=== PATIENT | male | born 1940 | race Caucasian/White ===

== ENCOUNTER 2021-07-09 08:06 | Outpatient (CLI) | payer MEDICARE, OTHER ==
[2021-07-09 08:54] LABS: BASOPHILS % (AUTO) 0.4 % (0-1); EOSINOPHILS # (AUTO) 0.1 X10'3 (0-0.9); EOSINOPHILS % (AUTO) 1.3 % (0-6); HEMOGLOBIN 13.3 g/dl (14.0-17.9); LYMPHOCYTES # (AUTO) 0.8 X10'3 (1.1-4.8); MEAN CORPUSCULAR HEMOGLOBIN 30.1 PG (27.0-31.0); MEAN CORPUSCULAR HGB CONC 33.3 g/dL (33.0-36.5); MEAN CORPUSCULAR VOLUME 90.4 FL (78-98); MEAN PLATELET VOLUME 9.6 FL (7.4-10.4); MONOCYTES # (AUTO) 0.8 X10'3 (0-0.9); MONOCYTES % (AUTO) 10.5 % (2-12); NEUTROPHILS # (AUTO) 6.3 X10'3 (1.8-7.7); NEUTROPHILS % (AUTO) 77.8 % (42-75); PLATELET COUNT 227 X10'3 (140-440); RED BLOOD COUNT 4.43 X10'6 (4.70-6.10); RED CELL DISTRIBUTION WIDTH 15.2 % (11.5-14.5); WHITE BLOOD COUNT 8.1 X10'3 (4.5-11.0)
[2021-07-09 08:57] LABS: PARTIAL THROMBOPLASTIN TIME 28 SECONDS (22-32)
[2021-07-09 09:30] LABS: ALANINE AMINOTRANSFERASE 54 U/L (12-78); ALBUMIN 3.6 G/DL (3.4-5.0); ALBUMIN/GLOBULIN RATIO 0.8 (1.1-1.5); ALKALINE PHOSPHATASE 81 IU/L (46-116); ANION GAP 8 (8-16); ASPARTATE AMINO TRANSFERASE 34 U/L (10-37); BILIRUBIN,TOTAL 0.6 MG/DL (0.1-1.0); BLOOD UREA NITROGEN 18 MG/DL (7-18); BUN/CREATININE RATIO 23.1 (5.4-32.0); CALCIUM 8.7 MG/DL (8.5-10.1); CHLORIDE 105 MMOL/L (99-107); CREATININE 0.78 MG/DL (0.60-1.10); GLUCOSE 107 MG/DL (70-104); POTASSIUM 4.3 MMOL/L (3.5-5.1); SODIUM 141 MMOL/L (135-145); TOTAL CARBON DIOXIDE 27.7 MMOL/L (24-32); eGFR > 90 ML/MIN
[2021-07-09] MEDS ORDERED: IODIXANOL 320 MG/ML INFUS..BTL 50ML IV ONE (10:55)
[2021-07-09] MEDS ORDERED: IODIXANOL 320 MG/ML INFUS..BTL 100ML IV ONE (10:55)
== END 2021-07-09 23:59 | disposition home or self-care (01) ==
LOC: RAD 08:06
PROVIDERS: ATTEND Internal Medicine Cardiovascular Disease
DX: N40.0 Benign prostatic hyperplasia without lower urinary tract symptoms (principal); I25.10 Atherosclerotic heart disease of native coronary artery without angina pectoris; J94.8 Other specified pleural conditions; I65.23 Occlusion and stenosis of bilateral carotid arteries; I08.1 Rheumatic disorders of both mitral and tricuspid valves; Z20.822 Contact with and (suspected) exposure to COVID-19
CPT/HCPCS: 36415; 71046; 71275; 74174; 80053; 85025; 85610; 85730; 87635; 93306; 93880; 94010; 94727; 94729; C9803; Q9967

== ENCOUNTER 2021-07-10 13:28 | Outpatient (CLI) | payer MEDICARE, OTHER ==
[~2021-07-10] VITALS: Ht 154.9 cm; Wt 58.2 kg
--- NOTE | 2021-07-10 14:54 | NUR ---
Patient was in clinic today with Dr. Alexis and Dr. Velásquez. walk test performed. KCCQ12 performed. Patient and family had opportunity to discuss options and ask question.
== END 2021-07-10 23:59 | disposition home or self-care (01) ==
LOC: TAVR 13:28 → EDUNIT# 17:00 → TAVR 23:59
PROVIDERS: ATTEND Internal Medicine Cardiovascular Disease
DX: I35.0 Nonrheumatic aortic (valve) stenosis (principal); R06.02 Shortness of breath; I65.29 Occlusion and stenosis of unspecified carotid artery
CPT/HCPCS: 93005

== ENCOUNTER 2021-09-17 08:30 | Inpatient (IN) | payer MEDICARE, OTHER ==
[2021-09-15 14:02] LABS: ABG BASE EXCESS 1.6 mmol/L (-2.0-2.0); ABG OXYGEN SATURATION 96.9 % (94-97); ABG PCO2 (T) 40.5 mmHg (35.0-48.0); ABG PO2 (T) 86.9 mmHg (75.0-100.0); ALLEN'S TEST POSITIVE; FCOHb 0.4 % (0.0-3.9); FMetHb 0.2 % (0.0-1.5); FO2Hb 96.3 % (94-97); TOTAL HEMOGLOBIN 13.4 G/dl (14.0-18.0)
[2021-09-15 14:21] LABS: BASOPHILS % (AUTO) 0.6 % (0-1); EOSINOPHILS # (AUTO) 0.1 X10'3 (0-0.9); EOSINOPHILS % (AUTO) 1.1 % (0-6); LYMPHOCYTES # (AUTO) 0.9 X10'3 (1.1-4.8); LYMPHOCYTES % (AUTO) 11.7 % (21-51); MEAN CORPUSCULAR HEMOGLOBIN 30.2 PG (27.0-31.0); MEAN CORPUSCULAR HGB CONC 33.3 g/dL (33.0-36.5); MEAN CORPUSCULAR VOLUME 90.7 FL (78-98); MONOCYTES % (AUTO) 12.4 % (2-12); NEUTROPHILS # (AUTO) 5.9 X10'3 (1.8-7.7); NEUTROPHILS % (AUTO) 74.2 % (42-75); PRE OP HEMATOCRIT 38.7 % (42.0-52.0); PRE OP HEMOGLOBIN 12.9 g/dL (14.0-17.9); PRE OP PLATELET COUNT 212 X10'3 (140-440); RED BLOOD COUNT 4.27 X10'6 (4.70-6.10); RED CELL DISTRIBUTION WIDTH 14.8 % (11.5-14.5)
[2021-09-15 14:21] LABS: CLARITY,URINE SLIGHTLY CLOUDY (Clear); COLOR,URINE YELLOW (Yellow); GLUCOSE, URINE NEGATIVE (Neg); KETONES,URINE TRACE mg/dl (Neg); LEUKOCYTE ESTERASE ,URINE SMALL (Neg); NITRITES, URINE POSITIVE (Neg); OCCULT BLOOD,URINE TRACE-INTACT (Neg); PROTEIN,URINE NEGATIVE (Neg); UROBILINOGEN,URINE 0.2 E.U/dL (0.2-1.0)
[2021-09-15 14:25] LABS: UA COLLECTION TYPE CLN CATCH MIDSTREAM
[2021-09-15 14:30] LABS: BACTERIA,URINE 3+ /HPF (Neg); MUCUS STRANDS MODERATE /LPF (Neg); RBC,URINE 0-2 /HPF (0-2); SQUAMOUS EPITHELIAL CELL,UR FEW /LPF (FEW); WBC,URINE 30-50 /HPF (0-4)
[2021-09-15 14:34] LABS: PRE OP INR 1.1 INR; PRE OP PROTIME 11.4 SECONDS (9.0-12.0)
[2021-09-15 15:27] LABS: ALBUMIN 3.5 G/DL (3.4-5.0); ALKALINE PHOSPHATASE 75 IU/L (46-116); BLOOD UREA NITROGEN 21 MG/DL (7-18); BUN/CREATININE RATIO 38.2 (5.4-32.0); CALCIUM 8.5 MG/DL (8.5-10.1); CHLORIDE 107 MMOL/L (99-107); CREATININE 0.55 MG/DL (0.60-1.10); PRE OP ALT 52 U/L (30-65); PRE OP ANION GAP 6 (8-16); PRE OP AST 30 U/L (10-37); PRE OP BILIRUB, TOTAL 0.4 MG/DL (0.0-1.0); PRE OP GLUCOSE 95 MG/DL (70-104); PRE OP POTASSIUM 4.5 MMOL/L (3.4-5.1); PRE OP SODIUM 144 MMOL/L (135-145); TOTAL CARBON DIOXIDE 31.3 MMOL/L (24-32); TOTAL PROTEIN 6.9 G/DL (6.4-8.2); eGFR > 90 ML/MIN
[~2021-09-17] VITALS: Ht 152.4 cm; Wt 59.6 kg
[~2021-09-17 08:30] MED LIST: ASCO-283 PO; ASPI81TA52 PO; ATOR40TA PO; Insulin Reg/NS 100units/100mL 100 ML IV SCH; LOSA50TA3 PO; MALTODEXTRIN/FRUCTOSE 0.68 KCAL/ML LIQUID 296ML BOTTLE PO ONE; MV-M1TAB37 PO; OMEG-79 PO; PROSTATE FORMULA PO; dextrose 50%-water 50ml dispensing syringe IV PRN; famotidine 20mg tablet PO ONE; gabapentin 400mg capsule PO ONE; insulin glargine (Lantus) pen - multi-dose SQ PRN; iohexol 300mg/ml 100ml inj. ONE; metoprolol tartrate 12.5mg (1/2 tablet) PO ONE; ringers solution, lacted 1,000 ML IV SCH
[2021-09-19 13:37] LABS: CLARITY,URINE SLIGHTLY CLOUDY (Clear); COLOR,URINE YELLOW (Yellow); GLUCOSE, URINE NEGATIVE (Neg); KETONES,URINE NEGATIVE (Neg); LEUKOCYTE ESTERASE ,URINE LARGE (Neg); NITRITES, URINE NEGATIVE (Neg); OCCULT BLOOD,URINE TRACE-INTACT (Neg); PROTEIN,URINE NEGATIVE (Neg); UROBILINOGEN,URINE 0.2 E.U/dL (0.2-1.0)
[2021-09-19 13:43] LABS: UA COLLECTION TYPE VOIDED
[2021-09-19 13:48] LABS: WBC,URINE 20-30 /HPF (0-4)
[2021-09-19 13:52] LABS: BACTERIA,URINE 1+ /HPF (Neg); MUCUS STRANDS FEW /LPF (Neg); RBC,URINE 0-2 /HPF (0-2); SQUAMOUS EPITHELIAL CELL,UR NONE SEEN /LPF (FEW); WBC CLUMPS,URINE FEW /HPF (NEGATIVE)
[2021-09-22] MEDS ORDERED: famotidine 20mg tablet PO ONE (05:30)
[2021-09-22] MEDS ORDERED: gabapentin 400mg capsule PO ONE (05:30)
[2021-09-22] MEDS ORDERED: ringers solution, lacted 1,000 ML IV SCH (05:30)
[2021-09-22] MEDS ORDERED: Insulin Reg/NS 100units/100mL 100 ML IV SCH ×2 (05:30)
[2021-09-22] MEDS ORDERED: metoprolol tartrate 12.5mg (1/2 tablet) PO ONE (05:30)
[2021-09-22] MEDS ORDERED: LORazepam 2 mg/ml vial IV ONE (05:30)
[2021-09-22 11:34] LABS: CLARITY,URINE CLEAR (Clear); COLOR,URINE YELLOW (Yellow); GLUCOSE, URINE NEGATIVE (Neg); KETONES,URINE NEGATIVE (Neg); LEUKOCYTE ESTERASE ,URINE LARGE (Neg); NITRITES, URINE NEGATIVE (Neg); OCCULT BLOOD,URINE NEGATIVE (Neg); PROTEIN,URINE NEGATIVE (Neg); UROBILINOGEN,URINE 0.2 E.U/dL (0.2-1.0)
[2021-09-22 11:54] LABS: UA COLLECTION TYPE CLN CATCH MIDSTREAM
[2021-09-22 11:55] LABS: BACTERIA,URINE 1+ /HPF (Neg); RBC,URINE NONE SEEN /HPF (0-2); SQUAMOUS EPITHELIAL CELL,UR FEW /LPF (FEW)
[2021-09-22 11:56] LABS: WBC CLUMPS,URINE FEW /HPF (NEGATIVE)
[2021-09-24 14:06] LABS: CLARITY,URINE CLEAR (Clear); COLOR,URINE YELLOW (Yellow); GLUCOSE, URINE NEGATIVE (Neg); KETONES,URINE NEGATIVE (Neg); LEUKOCYTE ESTERASE ,URINE TRACE (Neg); NITRITES, URINE NEGATIVE (Neg); OCCULT BLOOD,URINE NEGATIVE (Neg); PROTEIN,URINE NEGATIVE (Neg); UROBILINOGEN,URINE 0.2 E.U/dL (0.2-1.0)
[2021-09-24 14:11] LABS: UA COLLECTION TYPE CLN CATCH MIDSTREAM
[2021-09-24 14:12] LABS: BACTERIA,URINE FEW /HPF (Neg); RBC,URINE 0-2 /HPF (0-2); SQUAMOUS EPITHELIAL CELL,UR FEW /LPF (FEW); WBC,URINE 0-4 /HPF (0-4)
[2021-09-25] MEDS ORDERED: ringers solution, lacted 1,000 ML IV SCH (05:00)
[2021-09-25] MEDS ORDERED: gabapentin 300mg capsule PO ONE (05:30)
[2021-09-25] MEDS ORDERED: famotidine 20mg tablet PO ONE (05:30)
[2021-09-25] MEDS ORDERED: MALTODEXTRIN/FRUCTOSE 0.68 KCAL/ML LIQUID 296ML BOTTLE PO ONE (06:00)
[2021-09-25] MEDS ORDERED: metoprolol tartrate 12.5mg (1/2 tablet) PO ONE (06:00)
[2021-09-26] MEDS ORDERED: Insulin Reg/NS 100units/100mL 100 ML IV SCH (11:30)
[2021-09-29] VITALS (18 sets, daily range): BP systolic 88–154; BP diastolic 28–84
[2021-09-29] MEDS ORDERED: ringers solution, lacted 1,000 ML IV SCH (05:00)
[2021-09-29] MEDS ORDERED: ceFAZolin 1000mg inj ONE ×2 (05:29→12:18)
[2021-09-29] MEDS: Insulin Reg/NS 100units/100mL 100 ML IV SCH (05:30)
[2021-09-29] MEDS ORDERED: MALTODEXTRIN/FRUCTOSE 0.68 KCAL/ML LIQUID 296ML BOTTLE PO ONE (05:30)
[2021-09-29] MEDS ORDERED: famotidine 20mg tablet PO ONE (05:30)
[2021-09-29] MEDS ORDERED: metoprolol tartrate 12.5mg (1/2 tablet) PO ONE (05:30)
[2021-09-29] MEDS ORDERED: gabapentin 300mg capsule PO ONE (05:30)
[2021-09-29 06:17] LABS: CLARITY,URINE SLIGHTLY CLOUDY (Clear); COLOR,URINE YELLOW (Yellow); GLUCOSE, URINE NEGATIVE (Neg); KETONES,URINE TRACE mg/dl (Neg); LEUKOCYTE ESTERASE ,URINE TRACE (Neg); NITRITES, URINE NEGATIVE (Neg); OCCULT BLOOD,URINE NEGATIVE (Neg); PH,URINE 5.5 (4.8-8.0); PROTEIN,URINE NEGATIVE (Neg); UROBILINOGEN,URINE 0.2 E.U/dL (0.2-1.0)
[2021-09-29] MEDS ORDERED: LORazepam 2 mg/ml vial IV ONE (06:19)
[2021-09-29 06:30] LABS: UA COLLECTION TYPE VOIDED
[2021-09-29 06:32] LABS: URIC ACID CRYSTALS 3+ /HPF (NEGATIVE)
[2021-09-29 06:33] LABS: BACTERIA,URINE NONE SEEN /HPF (Neg); MUCUS STRANDS NONE SEEN /LPF (Neg); RBC,URINE NONE SEEN /HPF (0-2); SQUAMOUS EPITHELIAL CELL,UR FEW /LPF (FEW); WBC,URINE 0-4 /HPF (0-4)
[2021-09-29] MEDS ORDERED: cefazolin/dext.iso 2gm/50ml 50 ML IV ONE (06:57)
[2021-09-29] MEDS ORDERED: VANCOMYCIN 1GM/200ML IVPB 200 ML IV ONE (06:57)
[2021-09-29] MEDS ORDERED: SUFENTANIL CITRATE 50 MCG/ML 2ml ampule IV ONE (07:00)
[2021-09-29] MEDS ORDERED: midazolam 1 mg/ML 2ml injection ONE (07:01)
[2021-09-29] MEDS ORDERED: DOPamine/D5W 400mg/250ml bag IV ONE (07:40)
[2021-09-29] MEDS ORDERED: NORepinephrine 8 MG in NS 250 ML BAG (32 mcg/ml) IV ONE (07:40)
[2021-09-29] MEDS ORDERED: nitroGLYCERIN in D5W 50mg/250ml (Tridil) infusion IV ONE (07:40)
[2021-09-29] MEDS ORDERED: isoflurane 100ml inhalation liquid IH ONE (07:40)
[2021-09-29] MEDS ORDERED: NORepinephrine 1 mg/ml inj IV ONE ×2 (08:00→10:00)
[2021-09-29] MEDS ORDERED: albumin (human) 25% 100 ML IV solution IV ONE ×2 (08:00→10:00)
[2021-09-29] MEDS ORDERED: sodium bicarbonate (8.4%) 1 mEq/ml syringe ONE ×2 (08:00→10:00)
[2021-09-29] MEDS ORDERED: methylPREDNISolone sod succ 1000mg vial ONE ×2 (08:00→10:00)
[2021-09-29] MEDS ORDERED: potassium Cl 2 mEq/ml inj IV ONE ×2 (08:00→10:00)
[2021-09-29] MEDS ORDERED: heparin 10,000 units/1 ML INJ ONE (08:00)
[2021-09-29] MEDS ORDERED: aminocaproic acid 250 MG/1 ML inj. ONE ×2 (08:00→10:00)
[2021-09-29] MEDS ORDERED: LIDOcaine 2% (20 mg/ml) 5ml cardiac syringe ONE ×2 (08:00→10:00)
[2021-09-29] MEDS ORDERED: calcium chloride 100 MG/1 ML inj IV ONE ×3 (08:00→19:00)
[2021-09-29] MEDS ORDERED: MAGNESIUM SULFATE 4 MEQ/ML (5gm/10ml) injection ONE ×2 (08:00→10:00)
[2021-09-29] MEDS ORDERED: heparin 1,000 units/ml 10ml inj ONE ×2 (08:00→10:00)
[2021-09-29 08:26] LABS: ABG BASE EXCESS -2.2 mmol/L (-2.0-2.0); ABG HCO3 21.4 mmol/L (22.0-26.0); ABG OXYGEN SATURATION 99.7 % (94-97); ABG PCO2 32.8 mmHg (35.0-48.0); CL (ABG) 106 mmol/L (98-110); FCOHb 0.1 % (0.0-3.9); FO2Hb 99.6 % (94-97); GLUCOSE (ABG) 89 mg/dl (70-105); IONIZED CA (ABG) 1.15 mmol/L (1.10-1.43); K (ABG) 3.6 mmol/L (3.5-5.0); TOTAL HEMOGLOBIN 11.7 G/dl (14.0-18.0)
[2021-09-29 09:18] LABS: ABG HCO3 26.2 mmol/L (22.0-26.0); ABG OXYGEN SATURATION 82.5 % (94-97); ABG PCO2 44.5 mmHg (35.0-48.0); CL (ABG) 106 mmol/L (98-110); FCOHb 0.4 % (0.0-3.9); FMetHb 0.1 % (0.0-1.5); FO2Hb 82.1 % (94-97); GLUCOSE (ABG) 90 mg/dl (70-105); IONIZED CA (ABG) 1.14 mmol/L (1.10-1.43); K (ABG) 3.8 mmol/L (3.5-5.0); TOTAL HEMOGLOBIN 11.1 G/dl (14.0-18.0)
[2021-09-29] MEDS ORDERED: ipratropium/albuterol 3ml nebule IH PRN (09:40)
[2021-09-29 09:50] LABS: ABG BASE EXCESS 0.5 mmol/L (-2.0-2.0); ABG HCO3 24.1 mmol/L (22.0-26.0); ABG OXYGEN SATURATION 99.6 % (94-97); ABG PCO2 34.5 mmHg (35.0-48.0); ABG PO2 453.4 mmHg (75.0-100.0); CL (ABG) 103 mmol/L (98-110); FCOHb 0.3 % (0.0-3.9); FMetHb 0.3 % (0.0-1.5); GLUCOSE (ABG) 107 mg/dl (70-105); IONIZED CA (ABG) 1.01 mmol/L (1.10-1.43); K (ABG) 4.3 mmol/L (3.5-5.0); TOTAL HEMOGLOBIN 9.2 G/dl (14.0-18.0)
[2021-09-29] MEDS ORDERED: phenylephrine 10mg/ml inj. ONE ×2 (10:00→12:18)
[2021-09-29 10:19] LABS: ABG BASE EXCESS -1.8 mmol/L (-2.0-2.0); ABG HCO3 23.9 mmol/L (22.0-26.0); ABG OXYGEN SATURATION 99.6 % (94-97); ABG PCO2 44.5 mmHg (35.0-48.0); ABG PO2 350.4 mmHg (75.0-100.0); CL (ABG) 105 mmol/L (98-110); FCOHb 0.1 % (0.0-3.9); FMetHb 0.1 % (0.0-1.5); FO2Hb 99.4 % (94-97); GLUCOSE (ABG) 116 mg/dl (70-105); IONIZED CA (ABG) 1.11 mmol/L (1.10-1.43); K (ABG) 4.4 mmol/L (3.5-5.0); TOTAL HEMOGLOBIN 9.2 G/dl (14.0-18.0)
[2021-09-29 10:56] LABS: ABG BASE EXCESS -3.5 mmol/L (-2.0-2.0); ABG HCO3 23.6 mmol/L (22.0-26.0); ABG OXYGEN SATURATION 99.5 % (94-97); CL (ABG) 106 mmol/L (98-110); FMetHb 0.1 % (0.0-1.5); FO2Hb 99.4 % (94-97); GLUCOSE (ABG) 146 mg/dl (70-105); IONIZED CA (ABG) 1.13 mmol/L (1.10-1.43); K (ABG) 4.4 mmol/L (3.5-5.0)
[2021-09-29 11:33] LABS: ABG BASE EXCESS -1.9 mmol/L (-2.0-2.0); ABG HCO3 25.3 mmol/L (22.0-26.0); ABG OXYGEN SATURATION 99.4 % (94-97); ABG PCO2 55.8 mmHg (35.0-48.0); ABG PO2 266.9 mmHg (75.0-100.0); CL (ABG) 107 mmol/L (98-110); FMetHb 0.3 % (0.0-1.5); FO2Hb 99.1 % (94-97); GLUCOSE (ABG) 193 mg/dl (70-105); IONIZED CA (ABG) 1.07 mmol/L (1.10-1.43); K (ABG) 4.3 mmol/L (3.5-5.0); TOTAL HEMOGLOBIN 9.5 G/dl (14.0-18.0)
[2021-09-29 12:04] LABS: ABG BASE EXCESS -1.3 mmol/L (-2.0-2.0); ABG HCO3 24.9 mmol/L (22.0-26.0); ABG OXYGEN SATURATION 99.4 % (94-97); ABG PCO2 48.8 mmHg (35.0-48.0); ABG PO2 266.3 mmHg (75.0-100.0); CL (ABG) 107 mmol/L (98-110); FCOHb 0.1 % (0.0-3.9); FMetHb 0.3 % (0.0-1.5); GLUCOSE (ABG) 215 mg/dl (70-105); IONIZED CA (ABG) 1.09 mmol/L (1.10-1.43); K (ABG) 4.2 mmol/L (3.5-5.0); TOTAL HEMOGLOBIN 9.7 G/dl (14.0-18.0)
[2021-09-29] MEDS ORDERED: acetaminophen 1,000mg/100ml IV 100 ML IV ONE (12:18)
[2021-09-29] MEDS ORDERED: epiNEPHrine 1 mg/ml inj ONE (12:18)
[2021-09-29] MEDS ORDERED: rocuronium 10mg/ml inj IV ONE (12:18)
[2021-09-29] MEDS ORDERED: etomidate 2mg/ml inj. ONE (12:18)
[2021-09-29] MEDS ORDERED: LIDOcaine 2% (20mg/ml) 5ml vial ONE (12:18)
[2021-09-29] MEDS ORDERED: glycopyrrolate 0.2mg/ml inj ONE (12:18)
[2021-09-29 12:34] LABS: ABG BASE EXCESS -2.8 mmol/L (-2.0-2.0); ABG HCO3 21.4 mmol/L (22.0-26.0); ABG OXYGEN SATURATION 99.1 % (94-97); ABG PCO2 34.8 mmHg (35.0-48.0); ABG PO2 176.2 mmHg (75.0-100.0); CL (ABG) 108 mmol/L (98-110); FCOHb 0.2 % (0.0-3.9); FMetHb 0.3 % (0.0-1.5); FO2Hb 98.6 % (94-97); GLUCOSE (ABG) 172 mg/dl (70-105); TOTAL HEMOGLOBIN 9.4 G/dl (14.0-18.0)
[2021-09-29 13:48] LABS: ABG BASE EXCESS -4.3 mmol/L (-2.0-2.0); ABG HCO3 21.7 mmol/L (22.0-26.0); ABG OXYGEN SATURATION 77.7 % (94-97); ABG PCO2 43.6 mmHg (35.0-48.0); CL (ABG) 112 mmol/L (98-110); FCOHb 0.4 % (0.0-3.9); FMetHb 0.2 % (0.0-1.5); FO2Hb 77.2 % (94-97); GLUCOSE (ABG) 85 mg/dl (70-105); IONIZED CA (ABG) 1.35 mmol/L (1.10-1.43); K (ABG) 3.4 mmol/L (3.5-5.0); TOTAL HEMOGLOBIN 9.5 G/dl (14.0-18.0)
[2021-09-29 14:57] LABS: ABG BASE EXCESS -6.1 mmol/L (-2.0-2.0); ABG HCO3 20.2 mmol/L (22.0-26.0); ABG OXYGEN SATURATION 99.3 % (94-97); ABG PCO2 43.3 mmHg (35.0-48.0); ABG PO2 235.6 mmHg (75.0-100.0); CL (ABG) 113 mmol/L (98-110); FCOHb 0.6 % (0.0-3.9); FMetHb 0.3 % (0.0-1.5); FO2Hb 98.4 % (94-97); GLUCOSE (ABG) 162 mg/dl (70-105); IONIZED CA (ABG) 1.87 mmol/L (1.10-1.43); K (ABG) 3.3 mmol/L (3.5-5.0)
[2021-09-29] MEDS ORDERED: morphine 4 MG/ML inj SYRINge IV PRN (15:40)
[2021-09-29] MEDS ORDERED: vasopressin inj. 40 UNIT in dextrose 5%-water 50ml 38 ML IV PRN (15:40)
[2021-09-29] MEDS ORDERED: potassium CL 10mEq/100ml bag 100 ML IV PRN (15:40)
[2021-09-29] MEDS ORDERED: acetaminophen 325mg tablet PO PRN (15:40)
[2021-09-29] MEDS ORDERED: sodium phosphate inj. 30 MMOL in dextrose 5%-water 250 ML IV PRN (15:40)
[2021-09-29] MEDS ORDERED: magnesium hydroxide 30ml (MOM) UD suspension PO PRN (15:40)
[2021-09-29] MEDS ORDERED: magnesium 4gm in 100ml NS 100 ML IV PRN (15:40)
[2021-09-29] MEDS ORDERED: magnesium citrate 296ml oral solution PO PRN (15:40)
[2021-09-29] MEDS ORDERED: dextrose 50%-water 50ml dispensing syringe IV PRN (15:40)
[2021-09-29] MEDS ORDERED: Insulin Reg/NS 100units/100mL 100 ML IV SCH (15:40)
[2021-09-29] MEDS ORDERED: HYDROcodone/acetaminophen 10/325mg tab PO PRN ×2 (15:40)
[2021-09-29] MEDS ORDERED: normal saline 250ml IV soln 250 ML IV PRN (15:40)
[2021-09-29] MEDS ORDERED: sodium phosphate inj. 15 MMOL in dextrose 5%-water 250 ML IV PRN (15:40)
[2021-09-29] MEDS ORDERED: Neutra Phos packet PO PRN (15:40)
[2021-09-29] MEDS ORDERED: DOPamine 400mg/D5W 250ml 250 ML IV PRN (15:40)
[2021-09-29] MEDS ORDERED: niCARDipine-NS 40mg/200ml IVPB 200 ML IV PRN (15:40)
[2021-09-29] MEDS ORDERED: mineral oil 133ml enema RC PRN (15:40)
[2021-09-29] MEDS ORDERED: potassium Cl 20 mEq SR tablet PO PRN (15:40)
[2021-09-29] MEDS ORDERED: NOREPINEPHRINE BITARTRATE/D5W 250 ML IV PRN (15:40)
[2021-09-29] MEDS: sodium chloride 0.45% 1,000 ML IV SCH (15:40)
[2021-09-29] MEDS ORDERED: morphine 2 MG/ML inj. syringe IV PRN (15:40)
[2021-09-29] MEDS ORDERED: nitroGLYCERIN-Tridil 50MG/D5W 250 ML IV PRN (15:40)
[2021-09-29] MEDS: pantoprazole 40MG/NS 100ML BAG 100 ML IV SCH (15:40)
[2021-09-29] MEDS ORDERED: insulin glargine (Lantus) pen - multi-dose SQ PRN (15:40)
[2021-09-29] MEDS ORDERED: NORepinephrine 8mg/ 250ml NS 250 ML IV PRN (15:50)
[2021-09-29] MEDS: ceFAZolin/D5W- 1GM premix 50 ML IV SCH (16:00)
[2021-09-29 16:05] LABS: ABG BASE EXCESS -3.9 mmol/L (-2.0-2.0); ABG HCO3 21.5 mmol/L (22.0-26.0); ABG OXYGEN SATURATION 97.7 % (94-97); ABG PCO2 (T) 37.1 mmHg (35.0-48.0); ABG PO2 (T) 120.3 mmHg (75.0-100.0); FCOHb 0.3 % (0.0-3.9); FMetHb 0.6 % (0.0-1.5); FO2Hb 96.8 % (94-97); PATIENT TEMPERATURE 34.8; PEEP 5 cm H2O; RESPIRATORY RATE 12 b/min; TIDAL VOLUME 547 mL; TOTAL HEMOGLOBIN 8.8 G/dl (14.0-18.0)
[2021-09-29] MEDS: vasopressin 40 UNIT in D5W 40ml IV DRIP IV SCH ×3 (16:16→22:56)
[2021-09-29 16:29] LABS: BASOPHILS % (AUTO) 0.1 % (0-1); EOSINOPHILS # (AUTO) 0.1 X10'3 (0-0.9); EOSINOPHILS % (AUTO) 0.4 % (0-6); HEMATOCRIT 24.6 % (42.0-52.0); LYMPHOCYTES # (AUTO) 0.7 X10'3 (1.1-4.8); LYMPHOCYTES % (AUTO) 3.8 % (21-51); MEAN CORPUSCULAR HEMOGLOBIN 29.7 PG (27.0-31.0); MEAN CORPUSCULAR HGB CONC 32.5 g/dL (33.0-36.5); MEAN CORPUSCULAR VOLUME 91.4 FL (78-98); MEAN PLATELET VOLUME 8.3 FL (7.4-10.4); MONOCYTES # (AUTO) 0.9 X10'3 (0-0.9); MONOCYTES % (AUTO) 5.4 % (2-12); NEUTROPHILS # (AUTO) 15.8 X10'3 (1.8-7.7); NEUTROPHILS % (AUTO) 90.3 % (42-75); PLATELET COUNT 165 X10'3 (140-440); RED BLOOD COUNT 2.69 X10'6 (4.70-6.10); RED CELL DISTRIBUTION WIDTH 14.7 % (11.5-14.5); WHITE BLOOD COUNT 17.5 X10'3 (4.5-11.0)
[2021-09-29 17:01] LABS: APTT 26 SECONDS (22-32)
[2021-09-29 17:27] LABS: ALANINE AMINOTRANSFERASE 47 U/L (12-78); ALBUMIN 3.2 G/DL (3.4-5.0); ALBUMIN/GLOBULIN RATIO 1.7 (1.1-1.5); ALKALINE PHOSPHATASE 48 IU/L (46-116); ANION GAP 14 (8-16); ASPARTATE AMINO TRANSFERASE 55 U/L (10-37); BILIRUBIN,TOTAL 0.9 MG/DL (0.1-1.0); BLOOD UREA NITROGEN 16 MG/DL (7-18); BUN/CREATININE RATIO 18.8 (5.4-32.0); CALCIUM 8.8 MG/DL (8.5-10.1); CHLORIDE 112 MMOL/L (99-107); CREATININE 0.85 MG/DL (0.60-1.10); GLUCOSE 126 MG/DL (70-104); MAGNESIUM 3.1 MG/DL (1.5-2.4); PHOSPHORUS 3.4 MG/DL (2.3-4.5); POTASSIUM 3.5 MMOL/L (3.5-5.1); SODIUM 149 MMOL/L (135-145); TOTAL CARBON DIOXIDE 23.5 MMOL/L (24-32); TOTAL PROTEIN 5.1 G/DL (6.4-8.2); eGFR 87 ML/MIN
[2021-09-29] MEDS: potassium Cl 20mEq/100mL bag 100 ML IV PRN ×3 (17:45→19:28)
--- NOTE | 2021-09-29 18:11 | NUR ---
Problems reprioritized. Patient report given, questions answered & plan of care reviewed with Lucila DOUGLAS.
[2021-09-29 18:39] LABS: BASOPHILS % (AUTO) 0.1 % (0-1); EOSINOPHILS % (AUTO) 0 % (0-6); HEMATOCRIT 25.3 % (42.0-52.0); HEMOGLOBIN 8.2 g/dl (14.0-17.9); LYMPHOCYTES # (AUTO) 0.8 X10'3 (1.1-4.8); LYMPHOCYTES % (AUTO) 4.8 % (21-51); MEAN CORPUSCULAR HEMOGLOBIN 29.5 PG (27.0-31.0); MEAN CORPUSCULAR HGB CONC 32.3 g/dL (33.0-36.5); MEAN CORPUSCULAR VOLUME 91.1 FL (78-98); MEAN PLATELET VOLUME 8.2 FL (7.4-10.4); MONOCYTES % (AUTO) 6.1 % (2-12); PLATELET COUNT 187 X10'3 (140-440); RED BLOOD COUNT 2.77 X10'6 (4.70-6.10); RED CELL DISTRIBUTION WIDTH 14.9 % (11.5-14.5); WHITE BLOOD COUNT 16.9 X10'3 (4.5-11.0)
[2021-09-29] MEDS ORDERED: amiodarone inj. 450 MG in dextrose 5%-water 241 ML IV SCH (18:55)
[2021-09-29] MEDS: mupirocin 2% nasal ointment 1gm UD NS SCH (19:31)
[2021-09-29] MEDS: ampicillin inj 1 GM in normal saline 100ml IV soln 100 ML IV SCH (19:31)
[2021-09-29] MEDS: VANCOMYCIN 1GM/200ML IVPB 200 ML IV SCH (19:31)
[2021-09-29] MEDS ORDERED: calcium chloride inj. 1,000 MG in NS 100ml IV soln (110ml) IV ONE (19:45)
[2021-09-29] MEDS: sennosides/docusate sodium tablet PO SCH (20:00)
[2021-09-29 21:44] LABS: ABG HCO3 18.9 mmol/L (22.0-26.0); ABG OXYGEN SATURATION 96.4 % (94-97); ABG PCO2 (T) 32.1 mmHg (35.0-48.0); ABG PO2 (T) 102.2 mmHg (75.0-100.0); FCOHb 0.3 % (0.0-3.9); FMetHb 0.7 % (0.0-1.5); FO2Hb 95.4 % (94-97); PATIENT TEMPERATURE 38.3; PEEP 5 cm H2O; RESPIRATORY RATE 12 b/min; TIDAL VOLUME 500 mL; TOTAL HEMOGLOBIN 8.3 G/dl (14.0-18.0)
[2021-09-29] MEDS: gabapentin 300mg capsule PO SCH (22:12)
[2021-09-29] MEDS: atorvastatin 10mg tablet PO SCH (22:12)
[2021-09-29 22:15] LABS: BASOPHILS % (AUTO) 0.1 % (0-1); EOSINOPHILS % (AUTO) 0 % (0-6); HEMATOCRIT 22.4 % (42.0-52.0); HEMOGLOBIN 7.3 g/dl (14.0-17.9); LYMPHOCYTES # (AUTO) 0.4 X10'3 (1.1-4.8); LYMPHOCYTES % (AUTO) 2.7 % (21-51); MEAN CORPUSCULAR HEMOGLOBIN 29.8 PG (27.0-31.0); MEAN CORPUSCULAR HGB CONC 32.6 g/dL (33.0-36.5); MEAN CORPUSCULAR VOLUME 91.2 FL (78-98); MONOCYTES # (AUTO) 0.6 X10'3 (0-0.9); MONOCYTES % (AUTO) 3.5 % (2-12); NEUTROPHILS # (AUTO) 15.1 X10'3 (1.8-7.7); NEUTROPHILS % (AUTO) 93.7 % (42-75); PLATELET COUNT 171 X10'3 (140-440); RED BLOOD COUNT 2.46 X10'6 (4.70-6.10); RED CELL DISTRIBUTION WIDTH 15.2 % (11.5-14.5); WHITE BLOOD COUNT 16.1 X10'3 (4.5-11.0)
[2021-09-29 22:28] LABS: ALBUMIN 2.8 G/DL (3.4-5.0); ANION GAP 10 (8-16); BLOOD UREA NITROGEN 19 MG/DL (7-18); BUN/CREATININE RATIO 22.4 (5.4-32.0); CALCIUM 8.8 MG/DL (8.5-10.1); CHLORIDE 113 MMOL/L (99-107); CREATININE 0.85 MG/DL (0.60-1.10); GLUCOSE 165 MG/DL (70-104); MAGNESIUM 2.4 MG/DL (1.5-2.4); PHOSPHORUS 3.6 MG/DL (2.3-4.5); POTASSIUM 5.7 MMOL/L (3.5-5.1); SODIUM 145 MMOL/L (135-145); TOTAL CARBON DIOXIDE 21.7 MMOL/L (24-32); eGFR 87 ML/MIN
[2021-09-29] MEDS: albumin (Human) 5% 250ml 250 ML IV PRN (23:47)
[2021-09-30] VITALS (36 sets, daily range): BP systolic 95–144; BP diastolic 45–68
[2021-09-30] MEDS: ceFAZolin/D5W- 1GM premix 50 ML IV SCH ×2 (01:03→07:54)
[2021-09-30 01:46] LABS: BASOPHILS % (AUTO) 0 % (0-1); EOSINOPHILS % (AUTO) 0 % (0-6); LYMPHOCYTES # (AUTO) 0.8 X10'3 (1.1-4.8); MEAN CORPUSCULAR HEMOGLOBIN 29.3 PG (27.0-31.0); MEAN CORPUSCULAR HGB CONC 32.4 g/dL (33.0-36.5); MEAN CORPUSCULAR VOLUME 90.4 FL (78-98); MEAN PLATELET VOLUME 8.9 FL (7.4-10.4); MONOCYTES # (AUTO) 1.5 X10'3 (0-0.9); MONOCYTES % (AUTO) 9.7 % (2-12); NEUTROPHILS # (AUTO) 13.2 X10'3 (1.8-7.7); NEUTROPHILS % (AUTO) 85.3 % (42-75); PLATELET COUNT 157 X10'3 (140-440); RED BLOOD COUNT 2.38 X10'6 (4.70-6.10); RED CELL DISTRIBUTION WIDTH 15.3 % (11.5-14.5); WHITE BLOOD COUNT 15.5 X10'3 (4.5-11.0)
[2021-09-30 01:49] LABS: HEMATOCRIT 21.5 % (42.0-52.0)
[2021-09-30] MEDS ORDERED: calcium chloride 100 MG/1 ML inj IV ONE (02:00)
[2021-09-30] MEDS: ampicillin inj 1 GM in normal saline 100ml IV soln 100 ML IV SCH ×4 (02:00→20:17)
[2021-09-30 02:15] LABS: ANION GAP 12 (8-16); BLOOD UREA NITROGEN 20 MG/DL (7-18); BUN/CREATININE RATIO 23.3 (5.4-32.0); CHLORIDE 114 MMOL/L (99-107); CREATININE 0.86 MG/DL (0.60-1.10); GLUCOSE 102 MG/DL (70-104); POTASSIUM 5.5 MMOL/L (3.5-5.1); SODIUM 147 MMOL/L (135-145); TOTAL CARBON DIOXIDE 21.2 MMOL/L (24-32); eGFR 85 ML/MIN
[2021-09-30 02:16] LABS: ALANINE AMINOTRANSFERASE 51 U/L (12-78); ALBUMIN 2.8 G/DL (3.4-5.0); ALBUMIN/GLOBULIN RATIO 1.6 (1.1-1.5); ALKALINE PHOSPHATASE 43 IU/L (46-116); ASPARTATE AMINO TRANSFERASE 78 U/L (10-37); BILIRUBIN,TOTAL 0.5 MG/DL (0.1-1.0); CALCIUM 8.2 MG/DL (8.5-10.1); MAGNESIUM 2.2 MG/DL (1.5-2.4); PHOSPHORUS 4.1 MG/DL (2.3-4.5); TOTAL PROTEIN 4.6 G/DL (6.4-8.2)
[2021-09-30 02:35] LABS: ABG BASE EXCESS -3.6 mmol/L (-2.0-2.0); ABG HCO3 20.8 mmol/L (22.0-26.0); ABG OXYGEN SATURATION 97.2 % (94-97); ABG PCO2 (T) 36.6 mmHg (35.0-48.0); FCOHb 0.3 % (0.0-3.9); FMetHb 0.3 % (0.0-1.5); FO2Hb 96.6 % (94-97); PATIENT TEMPERATURE 38.2; PEEP 5 cm H2O; RESPIRATORY RATE 12 b/min; TIDAL VOLUME 500 mL; TOTAL HEMOGLOBIN 7.5 G/dl (14.0-18.0)
[2021-09-30] MEDS ORDERED: amiodarone inj. 450 MG in dextrose 5%-water 241 ML IV PRN (04:06)
[2021-09-30] MEDS ORDERED: amiodarone inj. 450 MG in dextrose 5%-water 241 ML IV SCH ×2 (04:09→08:36)
[2021-09-30] MEDS: albumin (Human) 5% 250ml 250 ML IV PRN ×2 (05:27→23:03)
--- NOTE | 2021-09-30 06:30 | NUR ---
Patient in room ICU 2041. I have received report from Lucila DOUGLAS and had the opportunity to ask questions and assume patient care.
[2021-09-30] MEDS: pantoprazole 40MG/NS 100ML BAG 100 ML IV SCH (07:54)
[2021-09-30] MEDS: sennosides/docusate sodium tablet PO SCH ×2 (07:54→20:17)
[2021-09-30] MEDS: VANCOMYCIN 1GM/200ML IVPB 200 ML IV SCH ×2 (07:54→20:17)
[2021-09-30] MEDS: gabapentin 300mg capsule PO SCH ×3 (07:55→20:17)
[2021-09-30] MEDS: aspirin 325mg tablet, delayed-release (Ecotrin) PO SCH (07:55)
[2021-09-30] MEDS: mupirocin 2% nasal ointment 1gm UD NS SCH ×2 (07:55→20:17)
[2021-09-30] MEDS: ascorbic acid 500mg tablet PO SCH (07:55)
[2021-09-30] MEDS: multivitamins, therapeutics tablet PO SCH (07:55)
[2021-09-30] MEDS ORDERED: metoprolol tartrate 12.5mg (1/2 tablet) PO SCH (08:00)
[2021-09-30 08:22] LABS: ABG BASE EXCESS -4.2 mmol/L (-2.0-2.0); ABG HCO3 19.7 mmol/L (22.0-26.0); ABG PCO2 (T) 32.9 mmHg (35.0-48.0); ABG PO2 (T) 82.8 mmHg (75.0-100.0); FCOHb 0.3 % (0.0-3.9); FMetHb 0.5 % (0.0-1.5); FO2Hb 94.2 % (94-97); PATIENT TEMPERATURE 38.1; PEEP 5 cm H2O; TIDAL VOLUME 450 mL; TOTAL HEMOGLOBIN 8.5 G/dl (14.0-18.0)
--- NOTE | 2021-09-30 08:30 | NUR ---
Dr. Mendosa and Reddy Ugarte by to round on patient, updated both on labs, drips, chest tube output, fever, and ventilator weaning parameters New orders repeat h/h after blood d/c cefepime send urine culture and sensitivity change amio to 0.5mg fixed rate no titration
[2021-09-30] MEDS ORDERED: ringers solution, lacted 1,000 ML IV SCH (09:25)
[2021-09-30] MEDS ORDERED: morphine 4 MG/ML inj SYRINge IV PRN (09:25)
[2021-09-30] MEDS ORDERED: meperidine/PF 25mg/ml syringe IV PRN ×3 (09:25)
[2021-09-30] MEDS ORDERED: ondansetron/PF 4mg/2ml inj IV PRN (09:25)
[2021-09-30] MEDS ORDERED: morphine 2 MG/ML inj. syringe IV PRN (09:25)
[2021-09-30] MEDS ORDERED: proCHLORperazine 10 MG/2 ml inj IV PRN (09:25)
--- NOTE | 2021-09-30 09:30 | NUR ---
[address] Mendosa's order placed on 4L NC
[2021-09-30 09:51] LABS: CLARITY,URINE CLEAR (Clear); COLOR,URINE YELLOW (Yellow); GLUCOSE, URINE NEGATIVE (Neg); KETONES,URINE NEGATIVE (Neg); LEUKOCYTE ESTERASE ,URINE NEGATIVE (Neg); NITRITES, URINE NEGATIVE (Neg); OCCULT BLOOD,URINE TRACE-INTACT (Neg); PROTEIN,URINE NEGATIVE (Neg); UROBILINOGEN,URINE 0.2 E.U/dL (0.2-1.0)
[2021-09-30 10:09] LABS: UA COLLECTION TYPE FOLEY CATH
[2021-09-30 10:10] LABS: WBC,URINE 0-4 /HPF (0-4)
[2021-09-30 10:11] LABS: BACTERIA,URINE NONE SEEN /HPF (Neg); HYALINE CASTS 0-3 /LPF (NEGATIVE); RBC,URINE 0-2 /HPF (0-2); SQUAMOUS EPITHELIAL CELL,UR FEW /LPF (FEW)
[2021-09-30 11:09] LABS: BASOPHILS % (AUTO) 0.1 % (0-1); EOSINOPHILS % (AUTO) 0 % (0-6); HEMATOCRIT 25.8 % (42.0-52.0); HEMOGLOBIN 8.5 g/dl (14.0-17.9); LYMPHOCYTES # (AUTO) 0.4 X10'3 (1.1-4.8); LYMPHOCYTES % (AUTO) 2.6 % (21-51); MEAN CORPUSCULAR HEMOGLOBIN 29.9 PG (27.0-31.0); MEAN CORPUSCULAR HGB CONC 32.8 g/dL (33.0-36.5); MEAN CORPUSCULAR VOLUME 91.1 FL (78-98); MEAN PLATELET VOLUME 9.5 FL (7.4-10.4); MONOCYTES # (AUTO) 1.4 X10'3 (0-0.9); NEUTROPHILS # (AUTO) 13.7 X10'3 (1.8-7.7); NEUTROPHILS % (AUTO) 88.3 % (42-75); PLATELET COUNT 90 X10'3 (140-440); RED BLOOD COUNT 2.84 X10'6 (4.70-6.10); RED CELL DISTRIBUTION WIDTH 15.1 % (11.5-14.5); WHITE BLOOD COUNT 15.5 X10'3 (4.5-11.0)
[2021-09-30 11:43] LABS: ALBUMIN 3.1 G/DL (3.4-5.0); ANION GAP 11 (8-16); BLOOD UREA NITROGEN 20 MG/DL (7-18); BUN/CREATININE RATIO 26.7 (5.4-32.0); CALCIUM 7.9 MG/DL (8.5-10.1); CHLORIDE 110 MMOL/L (99-107); CREATININE 0.75 MG/DL (0.60-1.10); GLUCOSE 149 MG/DL (70-104); SODIUM 143 MMOL/L (135-145); eGFR > 90 ML/MIN
--- NOTE | 2021-09-30 11:54 | NUR ---
Called Dr Mendosa to update him on repeat labs, stated that the labs were acceptable and does not want to treat the calcium, stated he got calcium in the OR yesterday, stated to keep weaning down the vasopressin cautiously. Stated that he will not be able to remove any of his tubes or lines today, until the decision is made to place a permanent pacemaker. Addendum: 09/30/21 at 1159 by Keila Diego RN per Dr Mendosa keep patient NPO till his hoarseness clears, concern for aspiration
[2021-09-30 11:57] LABS: APTT 29 SECONDS (22-32)
[2021-09-30 12:07] LABS: MAGNESIUM 1.9 MG/DL (1.5-2.4); PHOSPHORUS 4.2 MG/DL (2.3-4.5)
--- NOTE | 2021-09-30 12:33 | NUR ---
CABG Consult: Pt extubated this AM s/p CABGx1 and redo AVR per EMR. NCS diet ordered though to be NPO at lunch today until hoarseness clears per RN note; likely temporary per RN via TC today. Pt would benefit from CABG ed post-op once more appropriate prior to discharge. Addendum: 09/30/21 at [address] Amended: Links added.
[2021-09-30] MEDS: Insulin Reg/NS 100units/100mL 100 ML IV SCH (14:50)
[2021-09-30] MEDS: amiodarone inj. 450 MG in dextrose 5%-water 241 ML IV SCH (16:31)
[2021-09-30 18:04] LABS: HEMOGLOBIN A1C 5.8 % (4.5-6.2)
[2021-09-30] MEDS: atorvastatin 10mg tablet PO SCH (20:17)
[2021-09-30] MEDS: tamsulosin 0.4mg capsule PO SCH (20:17)
[2021-09-30] MEDS: ondansetron/PF 4mg/2ml inj IV PRN (21:31)
--- NOTE | 2021-09-30 22:15 | NUR ---
Call to Dr. Mendosa regarding decreasing O2 sat. Orders noted and RT notified
[2021-09-30] MEDS: ipratropium/albuterol 3ml nebule IH SCH (22:40)
[2021-10-01] VITALS (16 sets, daily range): BP systolic 102–133; BP diastolic 48–67
--- NOTE | 2021-10-01 00:23 | NUR ---
Call in to Dr. Mendosa. Notified BPS remains below his stated goal of 110mmHg after albumin has infused. No new orders at this time
[2021-10-01] MEDS: ampicillin inj 1 GM in normal saline 100ml IV soln 100 ML IV SCH ×4 (02:33→19:14)
[2021-10-01] MEDS: ipratropium/albuterol 3ml nebule IH SCH ×6 (02:44→23:00)
[2021-10-01 03:27] LABS: BASOPHILS % (AUTO) 0.1 % (0-1); EOSINOPHILS % (AUTO) 0 % (0-6); HEMATOCRIT 23.3 % (42.0-52.0); HEMOGLOBIN 7.6 g/dl (14.0-17.9); LYMPHOCYTES # (AUTO) 0.7 X10'3 (1.1-4.8); LYMPHOCYTES % (AUTO) 5.1 % (21-51); MEAN CORPUSCULAR HGB CONC 32.8 g/dL (33.0-36.5); MEAN CORPUSCULAR VOLUME 88.3 FL (78-98); MEAN PLATELET VOLUME 10.1 FL (7.4-10.4); MONOCYTES # (AUTO) 1.4 X10'3 (0-0.9); MONOCYTES % (AUTO) 10.7 % (2-12); NEUTROPHILS # (AUTO) 10.9 X10'3 (1.8-7.7); NEUTROPHILS % (AUTO) 84.1 % (42-75); PLATELET COUNT 77 X10'3 (140-440); RED BLOOD COUNT 2.63 X10'6 (4.70-6.10); WHITE BLOOD COUNT 12.9 X10'3 (4.5-11.0)
[2021-10-01 04:02] LABS: ALBUMIN 3.1 G/DL (3.4-5.0); ANION GAP 8 (8-16); BLOOD UREA NITROGEN 25 MG/DL (7-18); BUN/CREATININE RATIO 37.9 (5.4-32.0); CALCIUM 7.8 MG/DL (8.5-10.1); CHLORIDE 108 MMOL/L (99-107); CREATININE 0.66 MG/DL (0.60-1.10); GLUCOSE 141 MG/DL (70-104); MAGNESIUM 1.9 MG/DL (1.5-2.4); PHOSPHORUS 4.1 MG/DL (2.3-4.5); POTASSIUM 4.8 MMOL/L (3.5-5.1); SODIUM 140 MMOL/L (135-145); eGFR > 90 ML/MIN
[2021-10-01] MEDS ORDERED: furosemide 20 MG/2 ML vial IV ONE ×2 (07:10→12:00)
[2021-10-01 07:27] LABS: ABG BASE EXCESS -2.4 mmol/L (-2.0-2.0); ABG HCO3 22.1 mmol/L (22.0-26.0); ABG OXYGEN SATURATION 85.7 % (94-97); ABG PCO2 (T) 36.7 mmHg (35.0-48.0); ABG PO2 (T) 52.4 mmHg (75.0-100.0); FCOHb 0.3 % (0.0-3.9); FLOW 5 L/min; FMetHb 0.3 % (0.0-1.5); FO2Hb 85.2 % (94-97); PATIENT TEMPERATURE 37.1; TOTAL HEMOGLOBIN 8.7 G/dl (14.0-18.0)
[2021-10-01] MEDS ORDERED: pantoprazole 40mg Tablet.DR PO SCH (07:30)
[2021-10-01] MEDS: multivitamins, therapeutics tablet PO SCH (08:00)
[2021-10-01] MEDS: mupirocin 2% nasal ointment 1gm UD NS SCH (08:00)
[2021-10-01 09:42] LABS: ABG BASE EXCESS -2.2 mmol/L (-2.0-2.0); ABG OXYGEN SATURATION 90.1 % (94-97); ABG PCO2 (T) 35.6 mmHg (35.0-48.0); ABG PO2 (T) 59.9 mmHg (75.0-100.0); FCOHb 0.3 % (0.0-3.9); FLOW 15 L/min; FMetHb 0.3 % (0.0-1.5); FO2Hb 89.6 % (94-97); PATIENT TEMPERATURE 37.1; TOTAL HEMOGLOBIN 9.9 G/dl (14.0-18.0)
--- NOTE | 2021-10-01 10:21 | NUR ---
Spoke with Dr. Mendosa who stated to give the patient 2 gm of mag IV now. To repeat the ABG at 1130. Chest xray at 1300. Turn Vasopressin down to 0.01. Lastly, if urine output decreases to less than 75 mL/hr to give another dose of 20 mg of Lasix IVP.
[2021-10-01] MEDS: aspirin 325mg tablet, delayed-release (Ecotrin) PO SCH (10:26)
[2021-10-01] MEDS: sennosides/docusate sodium tablet PO SCH ×2 (10:26→19:14)
[2021-10-01] MEDS: gabapentin 300mg capsule PO SCH ×2 (10:26→12:28)
[2021-10-01] MEDS: ascorbic acid 500mg tablet PO SCH (10:27)
[2021-10-01] MEDS: amiodarone inj. 450 MG in dextrose 5%-water 241 ML IV SCH ×2 (10:30→22:00)
--- NOTE | 2021-10-01 11:00 | NUR ---
Patient in room ICU 2041. I have received report from MISAEL Breaux and had the opportunity to ask questions and assume patient care.
[2021-10-01] MEDS: magnesium 2GM in 50ml NS 50 ML IV PRN (11:25)
[2021-10-01 11:26] LABS: ABG BASE EXCESS -2.2 mmol/L (-2.0-2.0); ABG HCO3 22.5 mmol/L (22.0-26.0); ABG OXYGEN SATURATION 89.5 % (94-97); ABG PCO2 (T) 38.5 mmHg (35.0-48.0); ABG PO2 (T) 58.6 mmHg (75.0-100.0); FCOHb 0.3 % (0.0-3.9); FLOW 15 L/min; FMetHb 0.2 % (0.0-1.5); FO2Hb 89.1 % (94-97); PATIENT TEMPERATURE 37.3; TOTAL HEMOGLOBIN 10.5 G/dl (14.0-18.0)
[2021-10-01 11:38] LABS: ALBUMIN 3.2 G/DL (3.4-5.0); ANION GAP 9 (8-16); BLOOD UREA NITROGEN 28 MG/DL (7-18); BUN/CREATININE RATIO 36.8 (5.4-32.0); CALCIUM 7.7 MG/DL (8.5-10.1); CHLORIDE 106 MMOL/L (99-107); CREATININE 0.76 MG/DL (0.60-1.10); GLUCOSE 173 MG/DL (70-104); POTASSIUM 4.5 MMOL/L (3.5-5.1); SODIUM 139 MMOL/L (135-145); eGFR > 90 ML/MIN
--- NOTE | 2021-10-01 12:00 | NUR ---
Called Dr. Mendosa with the repeat ABG results. Orders to stop the Vasopressin, give a x1 dose of 20 mg of Lasix and increase the oxygen to 20L.
[2021-10-01] MEDS: vasopressin 40 UNIT in D5W 40ml IV DRIP IV SCH (15:30)
[2021-10-01] MEDS: sodium chloride 0.45% 1,000 ML IV SCH (16:11)
--- NOTE | 2021-10-01 16:30 | NUR ---
Dr. Mendosa called asking for us to do a repeat ABG, will put in the order and page RT.
[2021-10-01 17:03] LABS: ABG BASE EXCESS -0.2 mmol/L (-2.0-2.0); ABG HCO3 24.9 mmol/L (22.0-26.0); ABG OXYGEN SATURATION 87.8 % (94-97); ABG PO2 (T) 57.8 mmHg (75.0-100.0); FCOHb 0.3 % (0.0-3.9); FLOW 15 L/min; FMetHb 0.2 % (0.0-1.5); FO2Hb 87.4 % (94-97); PATIENT TEMPERATURE 37.3; TOTAL HEMOGLOBIN 10.4 G/dl (14.0-18.0)
--- NOTE | 2021-10-01 17:09 | NUR ---
Spoke with Dr. Mendosa to relay the ABG results. He stated he would like the patient put on Non-rebreather at 100% and then repeat an ABG in an hour. Spoke with RT and relayed the plan. Dr. Mendosa is aware of the current blood pressure that has dipped into the low [address] Mendosa was asked if he would like to repeat the H/H to see if the level came up after the blood transfusion, Dr. Mendosa stated that he doesn't feel the H/H is the problem and would not like us to repeat the lab. Dr. Mendosa was also made aware of the PA pressures that have been running around 42/25.
--- NOTE | 2021-10-01 18:21 | NUR ---
Problems reprioritized. Patient report given, questions answered & plan of care reviewed with Jarad RN.
--- NOTE | 2021-10-01 18:40 | NUR ---
Dr. Mendosa at bedside. RT paged for ABG.
[2021-10-01 18:54] LABS: ABG BASE EXCESS 0.9 mmol/L (-2.0-2.0); ABG HCO3 25.5 mmol/L (22.0-26.0); ABG OXYGEN SATURATION 89.1 % (94-97); ABG PCO2 (T) 41.6 mmHg (35.0-48.0); ABG PO2 (T) 59.5 mmHg (75.0-100.0); FCOHb 0.3 % (0.0-3.9); FLOW 15 L/min; FMetHb 0.2 % (0.0-1.5); FO2Hb 88.7 % (94-97); PATIENT TEMPERATURE 37.5; TOTAL HEMOGLOBIN 10.4 G/dl (14.0-18.0)
[2021-10-01] MEDS: atorvastatin 10mg tablet PO SCH (19:14)
[2021-10-01] MEDS: tamsulosin 0.4mg capsule PO SCH (19:14)
[2021-10-01] MEDS ORDERED: rocuronium 10mg/ml inj IV ONE (19:37)
[2021-10-01] MEDS ORDERED: fentaNYL /PF 50mcg/ml 5ml ampule ONE ×2 (19:37→20:38)
[2021-10-01] MEDS ORDERED: MIDAZolam 1mg/ml 10ml vial ONE (19:37)
[2021-10-01] MEDS ORDERED: ceFAZolin 1000mg inj ONE (19:40)
[2021-10-01] MEDS ORDERED: sevoflurane 250ml liquid IH ONE (19:45)
[2021-10-01] MEDS ORDERED: epiNEPHrine 1 mg/ml inj ONE (19:45)
[2021-10-01] MEDS ORDERED: protamine sulf. 10mg/ml inj. IV ONE (19:45)
[2021-10-01] MEDS ORDERED: NORepinephrine 8 MG in NS 250 ML BAG (32 mcg/ml) IV ONE (19:45)
[2021-10-01] MEDS ORDERED: sodium bicarbonate (8.4%) inj. 1 MEQ/ML ML ONE (19:45)
[2021-10-01] MEDS ORDERED: amiodarone in dextrose, iso-osm 360mg/200ml bag IV ONE (19:45)
[2021-10-01] MEDS ORDERED: calcium chloride 100 MG/1 ML inj IV ONE (19:45)
--- NOTE | 2021-10-01 19:45 | NUR ---
Pt en route to OR. Consent in chart. Blood consent in chart, blood products ordered, blood bank notified of surgery.
[2021-10-01 20:22] LABS: ABG BASE EXCESS -1.6 mmol/L (-2.0-2.0); ABG HCO3 23.2 mmol/L (22.0-26.0); ABG PCO2 39.2 mmHg (35.0-48.0); ABG PO2 103.8 mmHg (75.0-100.0); CL (ABG) 107 mmol/L (98-110); FCOHb 0.4 % (0.0-3.9); FMetHb 0.3 % (0.0-1.5); FO2Hb 96.3 % (94-97); GLUCOSE (ABG) 124 mg/dl (70-105); IONIZED CA (ABG) 1.13 mmol/L (1.10-1.43); K (ABG) 4.1 mmol/L (3.5-5.0)
[2021-10-01] MEDS ORDERED: vancomycin 1,000mg inj ONE (20:35)
[2021-10-01] MEDS ORDERED: albumin (Human) 5% 250ml 250 ML IV ONE ×2 (21:08→23:42)
[2021-10-01 21:37] LABS: ABG BASE EXCESS 1.2 mmol/L (-2.0-2.0); ABG HCO3 26.4 mmol/L (22.0-26.0); ABG OXYGEN SATURATION 99.8 % (94-97); ABG PCO2 45.6 mmHg (35.0-48.0); ABG PO2 396.7 mmHg (75.0-100.0); CL (ABG) 107 mmol/L (98-110); FMetHb 0.3 % (0.0-1.5); FO2Hb 98.5 % (94-97); GLUCOSE (ABG) 138 mg/dl (70-105); K (ABG) 5.2 mmol/L (3.5-5.0)
[2021-10-01 22:11] LABS: ABG BASE EXCESS VENOUS 0.4 mmol/L (-2.0 - 2.0); ABG HCO3 VENOUS 25.1 mmol/L (21.0-28.0); ABG PCO2 VENOUS 40.7 mmHg (41.0-54.0); ABG PO2 VENOUS 50.7 mmHg (25.0-35.0); CL (ABG) 108 mmol/L (98-110); FCOHb VENOUS 1.1 %; FHHb VENOUS 13.4 %; FMetHb VENOUS 0.3 % (0.0 - 0.5); FO2Hb VENOUS 85.2 %; GLUCOSE (ABG) 164 mg/dl (70-105); IONIZED CA (ABG) 0.99 mmol/L (1.10-1.43); K (ABG) 5.2 mmol/L (3.5-5.0); TOTAL HEMOGLOBIN 7.4 G/dl (14.0-18.0)
[2021-10-01 23:13] LABS: ABG BASE EXCESS VENOUS -0.7 mmol/L (-2.0 - 2.0); ABG HCO3 VENOUS 24.9 mmol/L (21.0-28.0); ABG PCO2 VENOUS 46.1 mmHg (41.0-54.0); ABG PO2 VENOUS 28.9 mmHg (25.0-35.0); CL (ABG) 108 mmol/L (98-110); FCOHb VENOUS 1.5 %; FHHb VENOUS 47.1 %; FMetHb VENOUS 0.3 % (0.0 - 0.5); FO2Hb VENOUS 51.1 %; GLUCOSE (ABG) 180 mg/dl (70-105); IONIZED CA (ABG) 1.39 mmol/L (1.10-1.43); K (ABG) 4.9 mmol/L (3.5-5.0); TOTAL HEMOGLOBIN 7.2 G/dl (14.0-18.0)
[2021-10-01 23:59] LABS: ABG BASE EXCESS -6.9 mmol/L (-2.0-2.0); ABG HCO3 19.5 mmol/L (22.0-26.0); ABG OXYGEN SATURATION 97.5 % (94-97); ABG PCO2 42.4 mmHg (35.0-48.0); ABG PO2 113.4 mmHg (75.0-100.0); CL (ABG) 110 mmol/L (98-110); FCOHb 0.3 % (0.0-3.9); FMetHb 0.3 % (0.0-1.5); FO2Hb 96.9 % (94-97); GLUCOSE (ABG) 227 mg/dl (70-105); IONIZED CA (ABG) 1.26 mmol/L (1.10-1.43); K (ABG) 4.2 mmol/L (3.5-5.0); TOTAL HEMOGLOBIN 10.8 G/dl (14.0-18.0)
[2021-10-02] VITALS (34 sets, daily range): BP systolic 100–136; BP diastolic 49–75
[2021-10-02] MEDS ORDERED: sodium bicarbonate (8.4%) inj. 1 MEQ/ML ML ONE
[2021-10-02] MEDS ORDERED: Insulin Reg/NS 100units/100mL 100 ML IV SCH (00:15)
[2021-10-02] MEDS: epiNEPHrine inj 5 MG, calcium chloride inj. 1,000 MG in normal saline 250ml IV soln 235 ML IV SCH ×2 (00:15→16:55)
[2021-10-02] MEDS ORDERED: NORepinephrine 8mg/ 250ml NS 250 ML IV PRN (00:15)
[2021-10-02] MEDS ORDERED: insulin glargine (Lantus) pen - multi-dose SQ PRN (00:15)
[2021-10-02] MEDS ORDERED: dextrose 50%-water 50ml dispensing syringe IV PRN (00:15)
--- NOTE | 2021-10-02 01:00 | NUR ---
Received pt from MD NELSON at bedside. Order for platelets and FFP.
[2021-10-02 01:20] LABS: BASOPHILS % (AUTO) 0 % (0-1); EOSINOPHILS % (AUTO) 0 % (0-6); HEMATOCRIT 31.6 % (42.0-52.0); HEMOGLOBIN 10.5 g/dl (14.0-17.9); LYMPHOCYTES # (AUTO) 1.5 X10'3 (1.1-4.8); LYMPHOCYTES % (AUTO) 6.6 % (21-51); MEAN CORPUSCULAR HEMOGLOBIN 30.1 PG (27.0-31.0); MEAN CORPUSCULAR HGB CONC 33.2 g/dL (33.0-36.5); MEAN CORPUSCULAR VOLUME 90.6 FL (78-98); MEAN PLATELET VOLUME 10.3 FL (7.4-10.4); MONOCYTES # (AUTO) 1.8 X10'3 (0-0.9); MONOCYTES % (AUTO) 7.8 % (2-12); NEUTROPHILS # (AUTO) 19.4 X10'3 (1.8-7.7); NEUTROPHILS % (AUTO) 85.6 % (42-75); RED BLOOD COUNT 3.49 X10'6 (4.70-6.10); RED CELL DISTRIBUTION WIDTH 14.8 % (11.5-14.5); WHITE BLOOD COUNT 22.7 X10'3 (4.5-11.0)
[2021-10-02] MEDS: Insulin Reg/NS 100units/100mL 100 ML IV SCH ×2 (01:22→22:04)
[2021-10-02 01:29] LABS: ABG BASE EXCESS -8.2 mmol/L (-2.0-2.0); ABG HCO3 18.8 mmol/L (22.0-26.0); ABG OXYGEN SATURATION 94.3 % (94-97); ABG PCO2 (T) 43.1 mmHg (35.0-48.0); ABG PO2 (T) 83.1 mmHg (75.0-100.0); FCOHb 0.3 % (0.0-3.9); FMetHb 0.3 % (0.0-1.5); FO2Hb 93.7 % (94-97); PATIENT TEMPERATURE 36.4; PEEP 5 cm H2O; RESPIRATORY RATE 10 b/min; TIDAL VOLUME 650 mL; TOTAL HEMOGLOBIN 11.7 G/dl (14.0-18.0)
[2021-10-02 01:30] LABS: PLATELET COUNT 50 X10'3 (140-440)
[2021-10-02 01:32] LABS: APTT 33 SECONDS (22-32)
[2021-10-02 01:34] LABS: ALANINE AMINOTRANSFERASE 132 U/L (12-78); ALBUMIN 3.1 G/DL (3.4-5.0); ALBUMIN/GLOBULIN RATIO 2.6 (1.1-1.5); ALKALINE PHOSPHATASE 47 IU/L (46-116); ANION GAP 14 (8-16); ASPARTATE AMINO TRANSFERASE 89 U/L (10-37); BILIRUBIN,TOTAL 2.3 MG/DL (0.1-1.0); BLOOD UREA NITROGEN 27 MG/DL (7-18); BUN/CREATININE RATIO 31.8 (5.4-32.0); CALCIUM 8.5 MG/DL (8.5-10.1); CHLORIDE 110 MMOL/L (99-107); CREATININE 0.85 MG/DL (0.60-1.10); GLUCOSE 266 MG/DL (70-104); MAGNESIUM 3.7 MG/DL (1.5-2.4); PHOSPHORUS 5.1 MG/DL (2.3-4.5); POTASSIUM 4.4 MMOL/L (3.5-5.1); SODIUM 145 MMOL/L (135-145); TOTAL CARBON DIOXIDE 21.3 MMOL/L (24-32); TOTAL PROTEIN 4.3 G/DL (6.4-8.2); eGFR 87 ML/MIN
[2021-10-02] MEDS: propofol 1000mg/100ml bottle 100 ML IV PRN ×3 (01:39→23:49)
[2021-10-02] MEDS ORDERED: sodium bicarbonate (8.4%) 1 mEq/ml syringe ONE (01:48)
[2021-10-02] MEDS ORDERED: sodium bicarbonate (8.4%) 1 mEq/ml syringe IV ONE (02:05)
[2021-10-02] MEDS: ampicillin inj 1 GM in normal saline 100ml IV soln 100 ML IV SCH ×4 (02:46→20:40)
[2021-10-02] MEDS: ipratropium/albuterol 3ml nebule IH SCH ×6 (03:11→23:19)
[2021-10-02 03:14] LABS: TOTAL CELLS COUNTED 100
[2021-10-02 03:16] LABS: PLATELET ESTIMATE DECREASED
[2021-10-02 03:18] LABS: ABG BASE EXCESS -3.4 mmol/L (-2.0-2.0); ABG OXYGEN SATURATION 96.5 % (94-97); ABG PCO2 (T) 45.9 mmHg (35.0-48.0); ABG PO2 (T) 97.6 mmHg (75.0-100.0); FCOHb 0.3 % (0.0-3.9); FMetHb 0.2 % (0.0-1.5); PATIENT TEMPERATURE 36.1; PEEP 8 cm H2O; RESPIRATORY RATE 10 b/min; TIDAL VOLUME 650 mL
[2021-10-02 03:20] LABS: NUCLEATED RED BLOOD CELLS 1 /100WBC (0-0)
[2021-10-02] MEDS: potassium Cl 20mEq/100mL bag 100 ML IV PRN ×3 (04:29→13:07)
--- NOTE | 2021-10-02 05:30 | NUR ---
Dr. Mendosa called for update. Order for HIT test.
[2021-10-02 06:21] LABS: BASOPHILS % (AUTO) 0.1 % (0-1); EOSINOPHILS % (AUTO) 0 % (0-6); HEMATOCRIT 29.9 % (42.0-52.0); HEMOGLOBIN 9.9 g/dl (14.0-17.9); LYMPHOCYTES # (AUTO) 0.2 X10'3 (1.1-4.8); LYMPHOCYTES % (AUTO) 1.1 % (21-51); MEAN CORPUSCULAR HEMOGLOBIN 30.1 PG (27.0-31.0); MEAN CORPUSCULAR HGB CONC 33.2 g/dL (33.0-36.5); MEAN CORPUSCULAR VOLUME 90.6 FL (78-98); MEAN PLATELET VOLUME 8.7 FL (7.4-10.4); MONOCYTES # (AUTO) 0.7 X10'3 (0-0.9); MONOCYTES % (AUTO) 3.7 % (2-12); NEUTROPHILS # (AUTO) 16.7 X10'3 (1.8-7.7); NEUTROPHILS % (AUTO) 95.1 % (42-75); PLATELET COUNT 125 X10'3 (140-440); WHITE BLOOD COUNT 17.6 X10'3 (4.5-11.0)
[2021-10-02 06:47] LABS: ALBUMIN 3.1 G/DL (3.4-5.0); ANION GAP 13 (8-16); BLOOD UREA NITROGEN 29 MG/DL (7-18); BUN/CREATININE RATIO 28.2 (5.4-32.0); CALCIUM 8.5 MG/DL (8.5-10.1); CHLORIDE 110 MMOL/L (99-107); CREATININE 1.03 MG/DL (0.60-1.10); GLUCOSE 237 MG/DL (70-104); MAGNESIUM 3.2 MG/DL (1.5-2.4); PHOSPHORUS 2.9 MG/DL (2.3-4.5); POTASSIUM 4.1 MMOL/L (3.5-5.1); SODIUM 146 MMOL/L (135-145); TOTAL CARBON DIOXIDE 23.3 MMOL/L (24-32); eGFR 69 ML/MIN
[2021-10-02 06:53] LABS: ABG BASE EXCESS -2.2 mmol/L (-2.0-2.0); ABG HCO3 22.3 mmol/L (22.0-26.0); ABG OXYGEN SATURATION 98.2 % (94-97); ABG PCO2 (T) 36.5 mmHg (35.0-48.0); ABG PO2 (T) 151.6 mmHg (75.0-100.0); FCOHb 0.2 % (0.0-3.9); FMetHb 0.3 % (0.0-1.5); FO2Hb 97.7 % (94-97); PATIENT TEMPERATURE 36.5; RESPIRATORY RATE 12 b/min; TIDAL VOLUME 650 mL; TOTAL HEMOGLOBIN 10.9 G/dl (14.0-18.0)
[2021-10-02 06:56] LABS: APTT 28 SECONDS (22-32)
[2021-10-02] MEDS: ceFAZolin/D5W- 1GM premix 50 ML IV SCH ×3 (07:24→23:49)
[2021-10-02] MEDS: aspirin 325mg tablet, delayed-release (Ecotrin) PO SCH (07:30)
[2021-10-02] MEDS ORDERED: aspirin 325mg tablet PO ONE (07:30)
[2021-10-02] MEDS ORDERED: pantoprazole 40MG/NS 100ML BAG 100 ML IV SCH (08:00)
[2021-10-02] MEDS: multivitamins, therapeutics tablet PO SCH (08:10)
[2021-10-02] MEDS: ascorbic acid 500mg tablet PO SCH (08:10)
[2021-10-02] MEDS: sennosides/docusate sodium tablet PO SCH ×2 (08:10→20:40)
[2021-10-02] MEDS: VANCOMYCIN 1GM/200ML IVPB 200 ML IV SCH ×2 (08:11→20:40)
[2021-10-02 08:33] LABS: ABG BASE EXCESS 1.6 mmol/L (-2.0-2.0); ABG OXYGEN SATURATION 95.4 % (94-97); ABG PCO2 (T) 39.8 mmHg (35.0-48.0); ABG PO2 (T) 81.5 mmHg (75.0-100.0); FCOHb 0.2 % (0.0-3.9); FMetHb 0.3 % (0.0-1.5); FO2Hb 94.9 % (94-97); PATIENT TEMPERATURE 36.7; RESPIRATORY RATE 12 b/min; TIDAL VOLUME 650 mL; TOTAL HEMOGLOBIN 10.4 G/dl (14.0-18.0)
--- NOTE | 2021-10-02 08:37 | NUR ---
po2 81, per Dr. Mendosa, change TV to 500 and RR 14 and turn PEEP down to 5 in x1 hour.
[2021-10-02] MEDS: amiodarone/D5 450MG/250ML BAG 250 ML IV SCH ×3 (09:05→11:29)
[2021-10-02] MEDS: albumin (Human) 5% 250ml 250 ML IV PRN (09:32)
--- NOTE | 2021-10-02 11:13 | NUR ---
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 NPO at this time w/ OG in place and MAP 79 this AM per EMR. Pt received one time Propofol though off this AM per RN. TF recs below in case prolonged intubation. No BM since admit 09/29 though multiple OR visit receiving routine senna. Will continue to monitor for nutrition intervention needs. Rec: 1. EN if prolonged intubation; IF TF Vital at 70ml/hr 2. IF TF; additional water flush 200ml Q4H 3. routine bowel care 4. daily wts 5. upon extubation; advance diet as medically indicated to regular diet given age Addendum: 10/02/21 at [address] Amended: Links added.
[2021-10-02 12:28] LABS: ABG BASE EXCESS 0.7 mmol/L (-2.0-2.0); ABG HCO3 24.8 mmol/L (22.0-26.0); ABG OXYGEN SATURATION 93.8 % (94-97); ABG PCO2 (T) 37.6 mmHg (35.0-48.0); ABG PO2 (T) 73.9 mmHg (75.0-100.0); FCOHb 0.3 % (0.0-3.9); FMetHb 0.3 % (0.0-1.5); FO2Hb 93.2 % (94-97); PATIENT TEMPERATURE 37.1; RESPIRATORY RATE 14 b/min; TIDAL VOLUME 500 mL; TOTAL HEMOGLOBIN 9.1 G/dl (14.0-18.0)
[2021-10-02] MEDS: vasopressin 40 UNIT in D5W 40ml IV DRIP IV SCH (16:54)
--- NOTE | 2021-10-02 18:15 | NUR ---
Problems reprioritized. Patient report given, questions answered & plan of care reviewed with Mac RN.
[2021-10-02] MEDS: atorvastatin 10mg tablet PO SCH (20:40)
[2021-10-02] MEDS: tamsulosin 0.4mg capsule PO SCH (20:41)
--- NOTE | 2021-10-02 21:15 | NUR ---
Dr. Mendosa at bedside. Orders received.
[2021-10-02] MEDS: fentaNYL/PF 50MCG/1 ML 2ML syringe IV PRN (21:56)
[2021-10-03] VITALS (29 sets, daily range): BP systolic 98–143; BP diastolic 51–86
[2021-10-03] MEDS: fentaNYL/PF 50MCG/1 ML 2ML syringe IV PRN (02:47)
[2021-10-03] MEDS: ampicillin inj 1 GM in normal saline 100ml IV soln 100 ML IV SCH ×4 (02:47→19:29)
[2021-10-03] MEDS: ipratropium/albuterol 3ml nebule IH SCH ×2 (03:20→07:18)
[2021-10-03 03:33] LABS: EOSINOPHILS % (AUTO) 0 % (0-6); LYMPHOCYTES # (AUTO) 0.4 X10'3 (1.1-4.8); MONOCYTES # (AUTO) 1.1 X10'3 (0-0.9); MONOCYTES % (AUTO) 4.6 % (2-12); NEUTROPHILS # (AUTO) 22.3 X10'3 (1.8-7.7); NEUTROPHILS % (AUTO) 93.6 % (42-75); RED CELL DISTRIBUTION WIDTH 15.1 % (11.5-14.5)
[2021-10-03 03:34] LABS: ABG BASE EXCESS -0.9 mmol/L (-2.0-2.0); ABG HCO3 23.2 mmol/L (22.0-26.0); ABG OXYGEN SATURATION 92.7 % (94-97); ABG PCO2 (T) 37.1 mmHg (35.0-48.0); ABG PO2 (T) 70.3 mmHg (75.0-100.0); FCOHb 0.3 % (0.0-3.9); FMetHb 0.4 % (0.0-1.5); FO2Hb 92.1 % (94-97); PATIENT TEMPERATURE 37.6; PEEP 5 cm H2O; RESPIRATORY RATE 14 b/min; TIDAL VOLUME 500 mL; TOTAL HEMOGLOBIN 8.9 G/dl (14.0-18.0)
[2021-10-03 03:35] LABS: BASOPHILS % (AUTO) 0 % (0-1); HEMATOCRIT 24.4 % (42.0-52.0); LYMPHOCYTES % (AUTO) 1.8 % (21-51); MEAN CORPUSCULAR HEMOGLOBIN 30.1 PG (27.0-31.0); MEAN CORPUSCULAR VOLUME 91.1 FL (78-98); MEAN PLATELET VOLUME 9.9 FL (7.4-10.4); PLATELET COUNT 98 X10'3 (140-440); RED BLOOD COUNT 2.67 X10'6 (4.70-6.10); WHITE BLOOD COUNT 23.9 X10'3 (4.5-11.0)
[2021-10-03 03:40] LABS: ALBUMIN 2.8 G/DL (3.4-5.0); ANION GAP 11 (8-16); BLOOD UREA NITROGEN 37 MG/DL (7-18); BUN/CREATININE RATIO 46.3 (5.4-32.0); CHLORIDE 114 MMOL/L (99-107); GLUCOSE 132 MG/DL (70-104); MAGNESIUM 2.3 MG/DL (1.5-2.4); PHOSPHORUS 3.4 MG/DL (2.3-4.5); POTASSIUM 4.7 MMOL/L (3.5-5.1); SODIUM 148 MMOL/L (135-145); TRIGLYCERIDES 61 MG/DL (20-135); eGFR > 90 ML/MIN
[2021-10-03 04:48] LABS: NUCLEATED RED BLOOD CELLS 1 /100WBC (0-0); PLATELET ESTIMATE DECREASED; TOTAL CELLS COUNTED 100
[2021-10-03] MEDS: magnesium 2GM in 50ml NS 50 ML IV PRN (07:01)
[2021-10-03] MEDS: aspirin 325mg tablet, delayed-release (Ecotrin) PO SCH (07:27)
[2021-10-03] MEDS: acetaminophen 325mg tablet PO PRN ×2 (07:27→18:13)
[2021-10-03] MEDS: multivitamins, therapeutics tablet PO SCH (07:27)
[2021-10-03] MEDS: sennosides/docusate sodium tablet PO SCH ×2 (07:28→19:28)
[2021-10-03] MEDS: ascorbic acid 500mg tablet PO SCH (07:28)
[2021-10-03 09:11] LABS: ABG BASE EXCESS -0.2 mmol/L (-2.0-2.0); ABG HCO3 22.8 mmol/L (22.0-26.0); ABG OXYGEN SATURATION 94.5 % (94-97); ABG PCO2 (T) 30.9 mmHg (35.0-48.0); ABG PO2 (T) 69.9 mmHg (75.0-100.0); FCOHb 0.3 % (0.0-3.9); FMetHb 0.2 % (0.0-1.5); PEEP 5 cm H2O; TOTAL HEMOGLOBIN 9.1 G/dl (14.0-18.0)
[2021-10-03] MEDS: ceFAZolin/D5W- 1GM premix 50 ML IV SCH ×2 (09:32→15:47)
[2021-10-03] MEDS ORDERED: ketorolac trometh. 30mg/ml inj. IM ONE (09:50)
[2021-10-03] MEDS ORDERED: furosemide 20 MG/2 ML vial IV ONE (10:00)
[2021-10-03] MEDS: VANCOMYCIN 1GM/200ML IVPB 200 ML IV SCH (10:11)
--- NOTE | 2021-10-03 10:15 | NUR ---
F/u 10/03: Pt extubated this AM to 6L NC and advanced to clear liquids diet per EMR. Will monitor for PO diet advancement, PO trends, and further nutrition intervention needs. Rec: 1. advance diet as medically indicated to regular given age 2. monitor for ONS needs pending PO trends following extubation; consider Tahir given surgical wound 3. routine bowel care 4. daily wts Addendum: 10/03/21 at [address] Amended: Links added.
[2021-10-03] MEDS ORDERED: insulin Lispro (HumaLOG) vial - multi-dose SQ SCH (11:10)
[2021-10-03] MEDS ORDERED: glucagon, human recombinant 1mg kit SUBCUT PRN (11:10)
[2021-10-03] MEDS ORDERED: DEXTROSE 15 GM of carb/4 tabs (each vial/BOTTLE has 4 tablets) PO PRN ×2 (11:10)
[2021-10-03] MEDS ORDERED: dextrose 50%-water 50ml dispensing syringe IV PRN ×2 (11:10)
[2021-10-03] MEDS: ipratropium/albuterol 3ml nebule NEB SCH ×4 (11:37→23:10)
[2021-10-03 14:36] LABS: ABG BASE EXCESS -3.3 mmol/L (-2.0-2.0); ABG HCO3 20.9 mmol/L (22.0-26.0); ABG OXYGEN SATURATION 91.3 % (94-97); ABG PCO2 (T) 33.5 mmHg (35.0-48.0); ABG PO2 (T) 61.2 mmHg (75.0-100.0); FCOHb 0.3 % (0.0-3.9); FLOW 4 L/min; FMetHb 0.3 % (0.0-1.5); FO2Hb 90.8 % (94-97); TOTAL HEMOGLOBIN 8.4 G/dl (14.0-18.0)
--- NOTE | 2021-10-03 15:31 | NUR ---
Extubated this am, on 3L NC. Breathing treatments ordered and patient using flutter valve and IS q 1 hour. IS goal 750-1000. V-paced. HR 80's-90's. Kiley in place but waveform dampened, MD aware. BP by cuff is 130's/70's. UOP approx 30-50/hour. Lasix 20 mg IV given x 1. Attempt made to get patient up to chair, unable to complete transfer, patient weak and shaky, unable to stand up steadily. Repositioned back to bed. All lines and drains intact. Passed nursing bedside swallow.
[2021-10-03] MEDS: sodium chloride 0.45% 1,000 ML IV SCH (15:40)
[2021-10-03] MEDS: vasopressin 40 UNIT in D5W 40ml IV DRIP IV SCH (15:44)
[2021-10-03] MEDS: epiNEPHrine inj 5 MG, calcium chloride inj. 1,000 MG in normal saline 250ml IV soln 235 ML IV SCH (17:52)
[2021-10-03] MEDS ORDERED: ketorolac trometh. 30mg/ml inj. IV PRN (18:05)
--- NOTE | 2021-10-03 18:30 | NUR ---
Patient in room ICU 2041. I have received report from MISAEL Keating and had the opportunity to ask questions and assume patient care.
--- NOTE | 2021-10-03 19:30 | NUR ---
Dr. Mendosa at bedside, requested epi to be turned down to 2.5 and for an ABG.
[2021-10-03 19:53] LABS: ABG BASE EXCESS -3.5 mmol/L (-2.0-2.0); ABG HCO3 20.2 mmol/L (22.0-26.0); ABG OXYGEN SATURATION 91.2 % (94-97); ABG PCO2 (T) 31.8 mmHg (35.0-48.0); ABG PO2 (T) 65.1 mmHg (75.0-100.0); ALLEN'S TEST POSITIVE; FCOHb 0.3 % (0.0-3.9); FLOW 5 L/min; FMetHb 0.3 % (0.0-1.5); FO2Hb 90.7 % (94-97); PATIENT TEMPERATURE 37.4; TOTAL HEMOGLOBIN 8.7 G/dl (14.0-18.0)
--- NOTE | 2021-10-03 20:11 | NUR ---
A line discontinued per Dr. Mendosa's request.
[2021-10-03] MEDS: tamsulosin 0.4mg capsule PO SCH (20:46)
[2021-10-03] MEDS: atorvastatin 10mg tablet PO SCH (20:46)
[2021-10-03] MEDS: insulin glargine (Lantus) pen - multi-dose SQ SCH (20:52)
--- NOTE | 2021-10-03 20:52 | NUR ---
pt refusing insulin for 214 blood sugar, would like to talk to Dr. Mendosa in the morning about it before taking insulin.
[2021-10-04] VITALS (24 sets, daily range): BP systolic 98–139; BP diastolic 58–79
[2021-10-04] MEDS: ipratropium/albuterol 3ml nebule NEB SCH ×6 (03:22→23:23)
[2021-10-04] MEDS: ampicillin inj 1 GM in normal saline 100ml IV soln 100 ML IV SCH ×4 (03:37→19:35)
[2021-10-04 04:04] LABS: BASOPHILS % (AUTO) 0.1 % (0-1); EOSINOPHILS % (AUTO) 0 % (0-6); HEMOGLOBIN 7.8 g/dl (14.0-17.9); MONOCYTES # (AUTO) 1.1 X10'3 (0-0.9)
[2021-10-04 04:06] LABS: HEMATOCRIT 23.4 % (42.0-52.0); LYMPHOCYTES # (AUTO) 0.3 X10'3 (1.1-4.8); LYMPHOCYTES % (AUTO) 1.2 % (21-51); MEAN CORPUSCULAR HEMOGLOBIN 30.7 PG (27.0-31.0); MEAN CORPUSCULAR HGB CONC 33.2 g/dL (33.0-36.5); MEAN CORPUSCULAR VOLUME 92.4 FL (78-98); MEAN PLATELET VOLUME 9.2 FL (7.4-10.4); MONOCYTES % (AUTO) 4.8 % (2-12); NEUTROPHILS # (AUTO) 21.3 X10'3 (1.8-7.7); NEUTROPHILS % (AUTO) 93.9 % (42-75); PLATELET COUNT 114 X10'3 (140-440); RED BLOOD COUNT 2.53 X10'6 (4.70-6.10); RED CELL DISTRIBUTION WIDTH 15.1 % (11.5-14.5); WHITE BLOOD COUNT 22.7 X10'3 (4.5-11.0)
[2021-10-04 04:47] LABS: ALANINE AMINOTRANSFERASE 135 U/L (12-78); ALBUMIN 2.8 G/DL (3.4-5.0); ALBUMIN/GLOBULIN RATIO 1.8 (1.1-1.5); ALKALINE PHOSPHATASE 93 IU/L (46-116); ANION GAP 10 (8-16); ASPARTATE AMINO TRANSFERASE 58 U/L (10-37); BILIRUBIN,TOTAL 0.9 MG/DL (0.1-1.0); BLOOD UREA NITROGEN 54 MG/DL (7-18); BUN/CREATININE RATIO 52.4 (5.4-32.0); CHLORIDE 111 MMOL/L (99-107); CREATININE 1.03 MG/DL (0.60-1.10); GLUCOSE 164 MG/DL (70-104); MAGNESIUM 2.7 MG/DL (1.5-2.4); PHOSPHORUS 4.4 MG/DL (2.3-4.5); POTASSIUM 4.6 MMOL/L (3.5-5.1); SODIUM 146 MMOL/L (135-145); TOTAL CARBON DIOXIDE 24.9 MMOL/L (24-32); TOTAL PROTEIN 4.4 G/DL (6.4-8.2); eGFR 69 ML/MIN
[2021-10-04 05:12] LABS: ANISOCYTOSIS 1+; PLATELET ESTIMATE DECREASED; POLYCHROMASIA FEW; TOTAL CELLS COUNTED 100
--- NOTE | 2021-10-04 06:16 | NUR ---
Problems reprioritized. Patient report given, questions answered & plan of care reviewed with MISAEL Keating.
[2021-10-04] MEDS: sennosides/docusate sodium tablet PO SCH ×2 (08:29→19:34)
[2021-10-04] MEDS: ascorbic acid 500mg tablet PO SCH (08:30)
[2021-10-04] MEDS: multivitamins, therapeutics tablet PO SCH (08:30)
[2021-10-04] MEDS: aspirin 325mg tablet, delayed-release (Ecotrin) PO SCH (08:30)
[2021-10-04] MEDS: acetaminophen w/codeine (30MG) #3 tablet PO PRN ×3 (08:32→20:20)
[2021-10-04] MEDS: atorvastatin 10mg tablet PO SCH (19:33)
[2021-10-04] MEDS: tamsulosin 0.4mg capsule PO SCH (19:35)
[2021-10-04] MEDS: insulin glargine (Lantus) pen - multi-dose SQ SCH (21:00)
[2021-10-05] VITALS (24 sets, daily range): BP systolic 93–122; BP diastolic 42–75
[2021-10-05] MEDS: ampicillin inj 1 GM in normal saline 100ml IV soln 100 ML IV SCH ×4 (02:00→20:41)
[2021-10-05] MEDS: ipratropium/albuterol 3ml nebule NEB SCH ×6 (03:02→23:10)
[2021-10-05 03:20] LABS: HEMOGLOBIN 7.9 g/dl (14.0-17.9); MEAN CORPUSCULAR HGB CONC 32.8 g/dL (33.0-36.5); PLATELET COUNT 95 X10'3 (140-440)
[2021-10-05 03:22] LABS: BASOPHILS % (AUTO) 0.2 % (0-1); EOSINOPHILS % (AUTO) 0.1 % (0-6); LYMPHOCYTES # (AUTO) 0.5 X10'3 (1.1-4.8); LYMPHOCYTES % (AUTO) 2.5 % (21-51); MEAN CORPUSCULAR HEMOGLOBIN 30.4 PG (27.0-31.0); MEAN CORPUSCULAR VOLUME 92.8 FL (78-98); MEAN PLATELET VOLUME 8.8 FL (7.4-10.4); MONOCYTES # (AUTO) 1.1 X10'3 (0-0.9); MONOCYTES % (AUTO) 5.3 % (2-12); NEUTROPHILS # (AUTO) 18.6 X10'3 (1.8-7.7); NEUTROPHILS % (AUTO) 91.9 % (42-75); RED BLOOD COUNT 2.59 X10'6 (4.70-6.10); RED CELL DISTRIBUTION WIDTH 14.9 % (11.5-14.5); WHITE BLOOD COUNT 20.2 X10'3 (4.5-11.0)
[2021-10-05 03:50] LABS: ALBUMIN 2.6 G/DL (3.4-5.0); ANION GAP 7 (8-16); BLOOD UREA NITROGEN 39 MG/DL (7-18); BUN/CREATININE RATIO 60.9 (5.4-32.0); CALCIUM 7.6 MG/DL (8.5-10.1); CHLORIDE 112 MMOL/L (99-107); CREATININE 0.64 MG/DL (0.60-1.10); GLUCOSE 119 MG/DL (70-104); MAGNESIUM 2.5 MG/DL (1.5-2.4); PHOSPHORUS 3.1 MG/DL (2.3-4.5); POTASSIUM 4.9 MMOL/L (3.5-5.1); SODIUM 146 MMOL/L (135-145); TOTAL CARBON DIOXIDE 26.9 MMOL/L (24-32); eGFR > 90 ML/MIN
--- NOTE | 2021-10-05 04:30 | NUR ---
Pt found to have blood on his chest. this was because the patient had pulled out his external jugular with the aggrastat running through it. Pressure held on iv site until bleeding subsided. IV catheter tip was intact. Addendum: 10/05/21 at 0536 by Vinay Carney RN written on the wrong patient profile. this did not happen to this patient.
[2021-10-05 04:34] LABS: ANISOCYTOSIS 1+; PLATELET ESTIMATE DECREASED; TOTAL CELLS COUNTED 100
[2021-10-05 04:35] LABS: POLYCHROMASIA FEW
--- NOTE | 2021-10-05 06:30 | NUR ---
Patient in room ICU 2041. I have received report from Judd DOUGLAS and had the opportunity to ask questions and assume patient care.
[2021-10-05] MEDS: multivitamins, therapeutics tablet PO SCH (07:38)
[2021-10-05] MEDS: sennosides/docusate sodium tablet PO SCH ×2 (07:38→20:00)
[2021-10-05] MEDS: ascorbic acid 500mg tablet PO SCH (07:40)
[2021-10-05] MEDS: aspirin 325mg tablet, delayed-release (Ecotrin) PO SCH (07:40)
[2021-10-05] MEDS: acetaminophen w/codeine (30MG) #3 tablet PO PRN ×3 (07:43→22:42)
--- NOTE | 2021-10-05 11:01 | NUR ---
Reassessment: Pt has been advanced to EC7/NCS diet on 10/04 though only consumed 0-25% of meals. D/w pt at bedside who states he has not had a BM and that is causing him to feel full and not have an appetite. Pt is receiving routine senna and PRN MoM. D/w RN who states they will give the PRN mag citrate today. Pt also voiced preference for [place] ONS, will recommend Ensure Enlive TID which should also assist w/ wound healing. Provided pt w/ written and verbal CABG nutrition diet education w/ RD contact info. Will continue to monitor. Recs: 1. Continue EC7/NCS diet as tolerated 2. [place] Ensure Enlive TID 3. Routine bowel care 4. Weekly wts Addendum: 10/05/21 at [address] Amended: Links added.
[2021-10-05] MEDS: epiNEPHrine inj 5 MG, calcium chloride inj. 1,000 MG in normal saline 250ml IV soln 235 ML IV SCH ×2 (11:35→13:38)
[2021-10-05] MEDS: lactose-reduced food (Ensure High Protein) 237ml bottle PO SCH ×2 (13:03→17:47)
[2021-10-05] MEDS: sodium chloride 0.45% 1,000 ML IV SCH (13:37)
--- NOTE | 2021-10-05 18:13 | NUR ---
Problems reprioritized. Patient report given, questions answered & plan of care reviewed with Shena DOUGLAS.
--- NOTE | 2021-10-05 18:19 | NUR ---
Patient in room ICU 2041. I have received report from Haley DOUGLAS and had the opportunity to ask questions and assume patient care.
--- NOTE | 2021-10-05 18:45 | NUR ---
Dr. Mendosa at bedside assessing patient. Order received to decrease epical rate and to DC PA line. Will follow MD orders, will continue to monitor patient.
[2021-10-05] MEDS: atorvastatin 10mg tablet PO SCH (20:41)
[2021-10-05] MEDS: tamsulosin 0.4mg capsule PO SCH (20:41)
[2021-10-05] MEDS: insulin glargine (Lantus) pen - multi-dose SQ SCH (21:00)
[2021-10-06] VITALS (27 sets, daily range): BP systolic 87–124; BP diastolic 52–67
[2021-10-06] MEDS: ampicillin inj 1 GM in normal saline 100ml IV soln 100 ML IV SCH ×4 (02:20→19:58)
[2021-10-06] MEDS: ipratropium/albuterol 3ml nebule NEB SCH ×6 (03:10→22:58)
[2021-10-06 03:39] LABS: BASOPHILS % (AUTO) 0.3 % (0-1); MEAN PLATELET VOLUME 9.3 FL (7.4-10.4); MONOCYTES # (AUTO) 0.9 X10'3 (0-0.9); WHITE BLOOD COUNT 16.9 X10'3 (4.5-11.0)
[2021-10-06 03:40] LABS: BASOPHILS # (AUTO) 0.1 X10'3 (0-0.2); EOSINOPHILS # (AUTO) 0.3 X10'3 (0-0.9); EOSINOPHILS % (AUTO) 1.5 % (0-6); HEMATOCRIT 24.1 % (42.0-52.0); LYMPHOCYTES # (AUTO) 0.6 X10'3 (1.1-4.8); LYMPHOCYTES % (AUTO) 3.6 % (21-51); MEAN CORPUSCULAR HGB CONC 33.1 g/dL (33.0-36.5); MEAN CORPUSCULAR VOLUME 93.5 FL (78-98); MONOCYTES % (AUTO) 5.2 % (2-12); NEUTROPHILS # (AUTO) 15.1 X10'3 (1.8-7.7); NEUTROPHILS % (AUTO) 89.4 % (42-75); PLATELET COUNT 99 X10'3 (140-440); RED BLOOD COUNT 2.58 X10'6 (4.70-6.10); RED CELL DISTRIBUTION WIDTH 15.1 % (11.5-14.5)
[2021-10-06 04:11] LABS: ALANINE AMINOTRANSFERASE 81 U/L (12-78); ALBUMIN 2.4 G/DL (3.4-5.0); ALBUMIN/GLOBULIN RATIO 1.3 (1.1-1.5); ALKALINE PHOSPHATASE 95 IU/L (46-116); ANION GAP 5 (8-16); ASPARTATE AMINO TRANSFERASE 42 U/L (10-37); BILIRUBIN,TOTAL 1.1 MG/DL (0.1-1.0); BLOOD UREA NITROGEN 27 MG/DL (7-18); BUN/CREATININE RATIO 48.2 (5.4-32.0); CHLORIDE 110 MMOL/L (99-107); CREATININE 0.56 MG/DL (0.60-1.10); GLUCOSE 122 MG/DL (70-104); POTASSIUM 4.8 MMOL/L (3.5-5.1); SODIUM 145 MMOL/L (135-145); TOTAL CARBON DIOXIDE 30.5 MMOL/L (24-32); TOTAL PROTEIN 4.2 G/DL (6.4-8.2); eGFR > 90 ML/MIN
[2021-10-06 05:20] LABS: ANISOCYTOSIS 1+; PLATELET ESTIMATE DECREASED; TOTAL CELLS COUNTED 100
[2021-10-06 05:21] LABS: BURR CELLS FEW; ELLIPTOCYTES FEW; POLYCHROMASIA FEW
--- NOTE | 2021-10-06 06:15 | NUR ---
Problems reprioritized. Patient report given, questions answered & plan of care reviewed with Haley DOUGLAS.
[2021-10-06 06:33] LABS: ACTIVATED CLOTTING TIME 122 SEC (101-148)
[2021-10-06 06:34] LABS: ACTIVATED CLOTTING TIME 122 SEC (101-148)
[2021-10-06 06:35] LABS: ACT @ 1.70 U 319 SEC (193-297); ACT @ 2.84 U 457 SEC (260-420); BASELINE ACT 148 SEC (101-148); PATIENT WEIGHT 57.0k KG
[2021-10-06 06:36] LABS: ACT @ 1.70 U 319 SEC (193-297); ACT @ 2.84 U 457 SEC (260-420); BASELINE ACT 148 SEC (101-148); PATIENT WEIGHT 57.0k KG
--- NOTE | 2021-10-06 06:38 | NUR ---
Patient in room ICU 2041. I have received report from Shena DOUGLAS and had the opportunity to ask questions and assume patient care.
[2021-10-06 06:41] LABS: ACTIVATED CLOTTING TIME 132 SEC (101-148)
[2021-10-06] MEDS: acetaminophen w/codeine (30MG) #3 tablet PO PRN ×2 (07:11→15:31)
[2021-10-06] MEDS: ascorbic acid 500mg tablet PO SCH (07:11)
[2021-10-06] MEDS: multivitamins, therapeutics tablet PO SCH (07:11)
[2021-10-06] MEDS: aspirin 325mg tablet, delayed-release (Ecotrin) PO SCH (07:11)
[2021-10-06] MEDS: sennosides/docusate sodium tablet PO SCH ×2 (07:29→20:00)
[2021-10-06] MEDS: lactose-reduced food (Ensure High Protein) 237ml bottle PO SCH (07:29)
[2021-10-06 08:11] LABS: MAGNESIUM 2.9 MG/DL (1.5-2.4); PHOSPHORUS 2.6 MG/DL (2.3-4.5)
[2021-10-06 08:31] LABS: ACT @ 1.70 U 286 SEC (193-297); ACT @ 2.84 U 410 SEC (260-420); BASELINE ACT 139 SEC (101-148); PATIENT WEIGHT 57.0k KG
[2021-10-06 08:32] LABS: ACT @ 1.70 U 286 SEC (193-297); ACT @ 2.84 U 410 SEC (260-420); BASELINE ACT 139 SEC (101-148); PATIENT WEIGHT 57.0k KG
[2021-10-06] MEDS: lactose-reduced food (Ensure Enlive) - 237ml bottle PO SCH ×2 (12:35→17:35)
[2021-10-06 13:50] LABS: CLARITY,URINE CLOUDY (Clear); COLOR,URINE YELLOW (Yellow); GLUCOSE, URINE NEGATIVE (Neg); KETONES,URINE NEGATIVE (Neg); LEUKOCYTE ESTERASE ,URINE TRACE (Neg); NITRITES, URINE NEGATIVE (Neg); OCCULT BLOOD,URINE TRACE-INTACT (Neg); PH,URINE 5.5 (4.8-8.0); PROTEIN,URINE NEGATIVE (Neg); UA COLLECTION TYPE NON-SPECIFIED; UROBILINOGEN,URINE 0.2 E.U/dL (0.2-1.0)
[2021-10-06 14:03] LABS: SQUAMOUS EPITHELIAL CELL,UR FEW /LPF (FEW)
[2021-10-06 14:04] LABS: BACTERIA,URINE 1+ /HPF (Neg)
[2021-10-06] MEDS: midodrine tablet 2.5 MG TABLET PO SCH (16:18)
--- NOTE | 2021-10-06 17:05 | NUR ---
Student Medication Administration: For this medication-pass time frame, all medication were reviewed, dispensed, administered and documented per hospital policy by [facility] Student Nurse. Student documentation: I have reviewed and agree with all interventions, assessments performed and documented by [facility] Student Nurse.
--- NOTE | 2021-10-06 18:20 | NUR ---
Patient in room ICU 2041. I have received report from Haley DOUGLAS and had the opportunity to ask questions and assume patient care.
--- NOTE | 2021-10-06 18:28 | NUR ---
Problems reprioritized. Patient report given, questions answered & plan of care reviewed with Shena DOUGLAS.
[2021-10-06] MEDS ORDERED: pantoprazole 40MG/NS 100ML BAG 100 ML IV SCH (20:00)
[2021-10-06] MEDS: atorvastatin 10mg tablet PO SCH (20:01)
[2021-10-06] MEDS: insulin glargine (Lantus) pen - multi-dose SQ SCH (20:02)
[2021-10-07] VITALS (24 sets, daily range): BP systolic 90–132; BP diastolic 51–71
[2021-10-07] MEDS: ampicillin inj 1 GM in normal saline 100ml IV soln 100 ML IV SCH ×4 (02:36→20:08)
[2021-10-07] MEDS: ipratropium/albuterol 3ml nebule NEB SCH ×6 (03:05→23:45)
[2021-10-07 03:50] LABS: BASOPHILS % (AUTO) 0.1 % (0-1); EOSINOPHILS # (AUTO) 0.3 X10'3 (0-0.9); HEMOGLOBIN 9.7 g/dl (14.0-17.9); LYMPHOCYTES # (AUTO) 0.5 X10'3 (1.1-4.8); MEAN CORPUSCULAR VOLUME 92.8 FL (78-98); MONOCYTES # (AUTO) 0.9 X10'3 (0-0.9); MONOCYTES % (AUTO) 6.3 % (2-12); NEUTROPHILS # (AUTO) 12.7 X10'3 (1.8-7.7); PLATELET COUNT 123 X10'3 (140-440)
[2021-10-07 03:51] LABS: EOSINOPHILS % (AUTO) 2.2 % (0-6); HEMATOCRIT 29.5 % (42.0-52.0); LYMPHOCYTES % (AUTO) 3.6 % (21-51); MEAN CORPUSCULAR HEMOGLOBIN 30.5 PG (27.0-31.0); MEAN CORPUSCULAR HGB CONC 32.8 g/dL (33.0-36.5); MEAN PLATELET VOLUME 9.5 FL (7.4-10.4); NEUTROPHILS % (AUTO) 87.8 % (42-75); RED BLOOD COUNT 3.18 X10'6 (4.70-6.10); RED CELL DISTRIBUTION WIDTH 14.9 % (11.5-14.5); WHITE BLOOD COUNT 14.5 X10'3 (4.5-11.0)
[2021-10-07 04:02] LABS: ALANINE AMINOTRANSFERASE 75 U/L (12-78); ALBUMIN 2.1 G/DL (3.4-5.0); ALBUMIN/GLOBULIN RATIO 1.1 (1.1-1.5); ALKALINE PHOSPHATASE 92 IU/L (46-116); ANION GAP 5 (8-16); ASPARTATE AMINO TRANSFERASE 35 U/L (10-37); BILIRUBIN,TOTAL 1.2 MG/DL (0.1-1.0); BLOOD UREA NITROGEN 21 MG/DL (7-18); BUN/CREATININE RATIO 44.7 (5.4-32.0); CHLORIDE 106 MMOL/L (99-107); CREATININE 0.47 MG/DL (0.60-1.10); GLUCOSE 76 MG/DL (70-104); POTASSIUM 4.6 MMOL/L (3.5-5.1); SODIUM 139 MMOL/L (135-145); TOTAL CARBON DIOXIDE 27.7 MMOL/L (24-32); eGFR > 90 ML/MIN
[2021-10-07] MEDS: epiNEPHrine inj 5 MG, calcium chloride inj. 1,000 MG in normal saline 250ml IV soln 235 ML IV SCH (05:15)
[2021-10-07 05:58] LABS: ANISOCYTOSIS 1+; NUCLEATED RED BLOOD CELLS 3 /100WBC (0-0); PLATELET ESTIMATE DECREASED; POLYCHROMASIA 1+; TOTAL CELLS COUNTED 100
[2021-10-07 05:59] LABS: ACANTHOCYTES FEW; SCHISTOCYTES FEW
--- NOTE | 2021-10-07 06:38 | NUR ---
Problems reprioritized. Patient report given, questions answered & plan of care reviewed with Tatyana DOUGLAS.
--- NOTE | 2021-10-07 07:17 | NUR ---
Received report from MISAEL Chatterjee
[2021-10-07] MEDS: aspirin 325mg tablet, delayed-release (Ecotrin) PO SCH (07:47)
[2021-10-07] MEDS: sennosides/docusate sodium tablet PO SCH ×2 (07:48→20:07)
[2021-10-07] MEDS: multivitamins, therapeutics tablet PO SCH (07:48)
[2021-10-07] MEDS: midodrine tablet 2.5 MG TABLET PO SCH ×3 (07:48→15:08)
[2021-10-07] MEDS: ascorbic acid 500mg tablet PO SCH (07:48)
[2021-10-07] MEDS: acetaminophen w/codeine (30MG) #3 tablet PO PRN ×2 (07:49→08:03)
[2021-10-07] MEDS: lactose-reduced food (Ensure Enlive) - 237ml bottle PO SCH ×3 (07:49→18:30)
[2021-10-07] MEDS ORDERED: furosemide 20 MG/2 ML vial IV ONE (10:50)
[2021-10-07] MEDS: sodium chloride 0.45% 1,000 ML IV SCH (18:30)
[2021-10-07] MEDS: atorvastatin 10mg tablet PO SCH (20:07)
[2021-10-07] MEDS: insulin glargine (Lantus) pen - multi-dose SQ SCH (21:00)
[2021-10-08] VITALS (24 sets, daily range): BP systolic 91–119; BP diastolic 50–69
[2021-10-08] MEDS: ampicillin inj 1 GM in normal saline 100ml IV soln 100 ML IV SCH ×2 (01:05→08:10)
[2021-10-08] MEDS: acetaminophen w/codeine (30MG) #3 tablet PO PRN (01:05)
[2021-10-08 03:21] LABS: BASOPHILS % (AUTO) 0.3 % (0-1); EOSINOPHILS # (AUTO) 0.2 X10'3 (0-0.9); EOSINOPHILS % (AUTO) 1.1 % (0-6); HEMATOCRIT 31.4 % (42.0-52.0); HEMOGLOBIN 10.3 g/dl (14.0-17.9); LYMPHOCYTES # (AUTO) 0.4 X10'3 (1.1-4.8); LYMPHOCYTES % (AUTO) 2.2 % (21-51); MEAN CORPUSCULAR HEMOGLOBIN 30.5 PG (27.0-31.0); MEAN CORPUSCULAR HGB CONC 32.8 g/dL (33.0-36.5); MEAN CORPUSCULAR VOLUME 93.2 FL (78-98); MEAN PLATELET VOLUME 9.4 FL (7.4-10.4); MONOCYTES # (AUTO) 0.9 X10'3 (0-0.9); MONOCYTES % (AUTO) 5.1 % (2-12); NEUTROPHILS # (AUTO) 16.1 X10'3 (1.8-7.7); NEUTROPHILS % (AUTO) 91.3 % (42-75); PLATELET COUNT 186 X10'3 (140-440); RED BLOOD COUNT 3.37 X10'6 (4.70-6.10); RED CELL DISTRIBUTION WIDTH 15.3 % (11.5-14.5); WHITE BLOOD COUNT 17.6 X10'3 (4.5-11.0)
[2021-10-08] MEDS: ipratropium/albuterol 3ml nebule NEB SCH ×6 (03:22→23:35)
[2021-10-08 03:33] LABS: ALANINE AMINOTRANSFERASE 72 U/L (12-78); ALKALINE PHOSPHATASE 91 IU/L (46-116); ANION GAP 4 (8-16); ASPARTATE AMINO TRANSFERASE 37 U/L (10-37); BLOOD UREA NITROGEN 20 MG/DL (7-18); BUN/CREATININE RATIO 38.5 (5.4-32.0); CALCIUM 6.7 MG/DL (8.5-10.1); CHLORIDE 105 MMOL/L (99-107); CREATININE 0.52 MG/DL (0.60-1.10); GLUCOSE 88 MG/DL (70-104); POTASSIUM 4.1 MMOL/L (3.5-5.1); SODIUM 138 MMOL/L (135-145); TOTAL PROTEIN 4.1 G/DL (6.4-8.2); eGFR > 90 ML/MIN
[2021-10-08] MEDS: ascorbic acid 500mg tablet PO SCH (08:14)
[2021-10-08] MEDS: multivitamins, therapeutics tablet PO SCH (08:14)
[2021-10-08] MEDS: aspirin 325mg tablet, delayed-release (Ecotrin) PO SCH (08:14)
[2021-10-08] MEDS: sennosides/docusate sodium tablet PO SCH ×2 (08:14→20:28)
[2021-10-08] MEDS: midodrine tablet 2.5 MG TABLET PO SCH ×3 (08:14→16:24)
[2021-10-08] MEDS: lactose-reduced food (Ensure Enlive) - 237ml bottle PO SCH ×3 (08:16→18:00)
[2021-10-08] MEDS ORDERED: furosemide 20 MG/2 ML vial IV ONE (09:15)
--- NOTE | 2021-10-08 11:57 | NUR ---
F/u 10/08: Pt PO fluctuating ~59% avg now heart healthy/EC7 diet past 2.5 days though improving to 75-100% past 3 meals w/ ~45% avg Ensure Enlive TIDWM meeting minimum estimated needs. LBM 10/06 receiving routine senna. Will continue to monitor for further nutrition intervention needs. Recs: 1. Continue heart healthy diet w/ EC7 texture and no red meats per pt preference 2. [place] Ensure Enlive TID; encourage PO 3. Routine bowel care 4. Weekly wts Addendum: 10/08/21 at [address] Amended: Links added.
[2021-10-08] MEDS ORDERED: levoFLOXACIN-Levaquin 500mg/D5 100 ML IV SCH (17:35)
[2021-10-08] MEDS: ondansetron/PF 4mg/2ml inj IV PRN (18:43)
[2021-10-08] MEDS: insulin glargine (Lantus) pen - multi-dose SQ SCH (19:39)
[2021-10-08] MEDS: atorvastatin 10mg tablet PO SCH (20:28)
[2021-10-08] MEDS: furosemide 20 MG/2 ML vial IV SCH (20:29)
--- NOTE | 2021-10-08 22:15 | NUR ---
Upon initial assessment patient sitting semi-badillo in bed with call light in reach. No s/s of distress noted, no c/o pain at this time. Even rise and fall of chest noted, lungs clear. Weak cough noted, patient encouraged to deep breathe and do not suppress coughs. HR even 90 bpm on monitor, currently AV paced. External pacer no longer attached to patient, per Aurelia day shift RN patient is now AV paced at a rate of 80 with internal pacer. Prevena noted intact and without any drainage. Left CECIL drain intact, dressing noted to be saturated and corners partially peeling away from wound. Right CECIL drain clean dry and intact. At this time still no c/o pain tolerated all PM medications. Wound care completed along with bed bath and line change.
[2021-10-08] MEDS: epiNEPHrine inj 5 MG, calcium chloride inj. 1,000 MG in normal saline 250ml IV soln 235 ML IV SCH (22:55)
[2021-10-09] VITALS (24 sets, daily range): BP systolic 91–116; BP diastolic 47–67
[2021-10-09 02:29] LABS: BASOPHILS % (AUTO) 0.1 % (0-1); EOSINOPHILS # (AUTO) 0.2 X10'3 (0-0.9); HEMOGLOBIN 9.8 g/dl (14.0-17.9); LYMPHOCYTES # (AUTO) 0.5 X10'3 (1.1-4.8); LYMPHOCYTES % (AUTO) 2.4 % (21-51); MEAN CORPUSCULAR HEMOGLOBIN 30.3 PG (27.0-31.0); MEAN CORPUSCULAR HGB CONC 32.6 g/dL (33.0-36.5); MEAN CORPUSCULAR VOLUME 92.7 FL (78-98); MEAN PLATELET VOLUME 8.6 FL (7.4-10.4); MONOCYTES # (AUTO) 1.1 X10'3 (0-0.9); MONOCYTES % (AUTO) 5.7 % (2-12); NEUTROPHILS # (AUTO) 18.2 X10'3 (1.8-7.7); NEUTROPHILS % (AUTO) 90.8 % (42-75); PLATELET COUNT 231 X10'3 (140-440); RED BLOOD COUNT 3.24 X10'6 (4.70-6.10); WHITE BLOOD COUNT 20.1 X10'3 (4.5-11.0)
[2021-10-09 02:45] LABS: ALANINE AMINOTRANSFERASE 65 U/L (12-78); ALBUMIN 1.7 G/DL (3.4-5.0); ALBUMIN/GLOBULIN RATIO 0.6 (1.1-1.5); ALKALINE PHOSPHATASE 82 IU/L (46-116); ANION GAP 2 (8-16); ASPARTATE AMINO TRANSFERASE 38 U/L (10-37); BILIRUBIN,TOTAL 1.1 MG/DL (0.1-1.0); BLOOD UREA NITROGEN 17 MG/DL (7-18); BUN/CREATININE RATIO 36.2 (5.4-32.0); CALCIUM 7.3 MG/DL (8.5-10.1); CHLORIDE 104 MMOL/L (99-107); CREATININE 0.47 MG/DL (0.60-1.10); GLUCOSE 90 MG/DL (70-104); POTASSIUM 3.8 MMOL/L (3.5-5.1); SODIUM 136 MMOL/L (135-145); TOTAL CARBON DIOXIDE 30.4 MMOL/L (24-32); TOTAL PROTEIN 4.4 G/DL (6.4-8.2); eGFR > 90 ML/MIN
--- NOTE | 2021-10-09 02:45 | NUR ---
Patient request to be placed on bed davis, produce medium sized brown liquid stool, without any complications.
--- NOTE | 2021-10-09 03:15 | NUR ---
Dr. Copeland at bedside, removed pravena wound vac, no drainage noted. While at bedside informed CECIL drain output and, abnormal AM labs, see EMR for new orders. Before Dr. Copeland left floor chest xray obtained for patient.
[2021-10-09] MEDS: ipratropium/albuterol 3ml nebule NEB SCH ×6 (03:36→23:22)
--- NOTE | 2021-10-09 06:20 | NUR ---
Patient report given to oncoming nurse Merlyn DOUGLAS. Plan of care, labs and abnormal findings discussed, all questions answered.
[2021-10-09 07:57] LABS: ABG PO2 43.8 mmHg (75.0-100.0)
[2021-10-09 07:58] LABS: TOTAL HEMOGLOBIN 6.4 G/dl (14.0-18.0)
[2021-10-09 07:58] LABS: ABG PO2 45.5 mmHg (75.0-100.0)
[2021-10-09] MEDS ORDERED: CefTRIAXone/D5W-Rocephin 1gm 50 ML IV SCH (08:00)
[2021-10-09] MEDS: lactose-reduced food (Ensure Enlive) - 237ml bottle PO SCH ×3 (08:52→17:43)
[2021-10-09] MEDS: CEFEPIME 2gm in D5W 50mL 50 ML IV SCH ×2 (09:19→20:02)
[2021-10-09] MEDS: aspirin 325mg tablet, delayed-release (Ecotrin) PO SCH (09:20)
[2021-10-09] MEDS: midodrine tablet 2.5 MG TABLET PO SCH ×3 (09:20→15:47)
[2021-10-09] MEDS: furosemide 20 MG/2 ML vial IV SCH ×2 (09:20→20:02)
[2021-10-09] MEDS: ascorbic acid 500mg tablet PO SCH (09:20)
[2021-10-09] MEDS: multivitamins, therapeutics tablet PO SCH (09:20)
[2021-10-09] MEDS: acetaminophen w/codeine (30MG) #3 tablet PO PRN ×2 (11:42→23:19)
[2021-10-09] MEDS: sodium chloride 0.45% 1,000 ML IV SCH (15:48)
[2021-10-09] MEDS: atorvastatin 10mg tablet PO SCH (20:02)
[2021-10-09] MEDS: tamsulosin 0.4mg capsule PO SCH (21:00)
[2021-10-09] MEDS: insulin glargine (Lantus) pen - multi-dose SQ SCH (21:00)
[2021-10-10] VITALS (25 sets, daily range): BP systolic 78–118; BP diastolic 46–69
[2021-10-10 02:17] LABS: BASOPHILS % (AUTO) 0.1 % (0-1); EOSINOPHILS # (AUTO) 0.4 X10'3 (0-0.9); EOSINOPHILS % (AUTO) 2.4 % (0-6); HEMATOCRIT 29.1 % (42.0-52.0); HEMOGLOBIN 9.4 g/dl (14.0-17.9); LYMPHOCYTES # (AUTO) 0.4 X10'3 (1.1-4.8); LYMPHOCYTES % (AUTO) 2.4 % (21-51); MEAN CORPUSCULAR HEMOGLOBIN 30.2 PG (27.0-31.0); MEAN CORPUSCULAR HGB CONC 32.4 g/dL (33.0-36.5); MEAN CORPUSCULAR VOLUME 93.4 FL (78-98); MEAN PLATELET VOLUME 8.6 FL (7.4-10.4); MONOCYTES # (AUTO) 1.4 X10'3 (0-0.9); MONOCYTES % (AUTO) 7.5 % (2-12); NEUTROPHILS # (AUTO) 16.1 X10'3 (1.8-7.7); NEUTROPHILS % (AUTO) 87.6 % (42-75); PLATELET COUNT 279 X10'3 (140-440); RED BLOOD COUNT 3.12 X10'6 (4.70-6.10); RED CELL DISTRIBUTION WIDTH 15.2 % (11.5-14.5); WHITE BLOOD COUNT 18.3 X10'3 (4.5-11.0)
[2021-10-10 02:29] LABS: ALANINE AMINOTRANSFERASE 63 U/L (12-78); ALBUMIN 1.6 G/DL (3.4-5.0); ALBUMIN/GLOBULIN RATIO 0.6 (1.1-1.5); ALKALINE PHOSPHATASE 77 IU/L (46-116); ANION GAP 2 (8-16); ASPARTATE AMINO TRANSFERASE 39 U/L (10-37); BILIRUBIN,TOTAL 0.8 MG/DL (0.1-1.0); BLOOD UREA NITROGEN 21 MG/DL (7-18); BUN/CREATININE RATIO 36.8 (5.4-32.0); CALCIUM 7.3 MG/DL (8.5-10.1); CHLORIDE 103 MMOL/L (99-107); CREATININE 0.57 MG/DL (0.60-1.10); GLUCOSE 98 MG/DL (70-104); POTASSIUM 3.7 MMOL/L (3.5-5.1); SODIUM 136 MMOL/L (135-145); TOTAL CARBON DIOXIDE 30.8 MMOL/L (24-32); TOTAL PROTEIN 4.4 G/DL (6.4-8.2); TRIGLYCERIDES 77 MG/DL (20-135); eGFR > 90 ML/MIN
[2021-10-10] MEDS: ipratropium/albuterol 3ml nebule NEB SCH ×5 (03:48→20:31)
[2021-10-10] MEDS: aspirin 325mg tablet, delayed-release (Ecotrin) PO SCH (08:55)
[2021-10-10] MEDS: lactose-reduced food (Ensure Enlive) - 237ml bottle PO SCH ×3 (08:56→18:00)
[2021-10-10] MEDS: midodrine tablet 2.5 MG TABLET PO SCH ×3 (08:56→16:00)
[2021-10-10] MEDS: furosemide 20 MG/2 ML vial IV SCH ×2 (08:57→19:18)
[2021-10-10] MEDS: multivitamins, therapeutics tablet PO SCH (08:57)
[2021-10-10] MEDS: ascorbic acid 500mg tablet PO SCH (08:57)
[2021-10-10] MEDS: CEFEPIME 2gm in D5W 50mL 50 ML IV SCH ×2 (08:58→20:35)
--- NOTE | 2021-10-10 09:31 | NUR ---
spoke with Dr. Mendosa, new order for midline, PICC not needed will cancel PICC order
[2021-10-10] MEDS: ondansetron/PF 4mg/2ml inj IV PRN (12:57)
[2021-10-10] MEDS: atorvastatin 10mg tablet PO SCH (20:35)
[2021-10-10] MEDS: insulin glargine (Lantus) pen - multi-dose SQ SCH (21:00)
--- NOTE | 2021-10-10 22:15 | NUR ---
Estevan Thomas called for patient update. Informed pt currently on 4L O2 no s/s of distress noted at this time, respirations even currently showing an O2 sat 90. Informed nurse to order ABG and call back with results. Also request left and right CECIL drain output is to be recorded separately, will continue to record CECIL output separately and pass on this information to day shift.
--- NOTE | 2021-10-10 22:30 | NUR ---
Called Dr. Mendosa to verify Flomax is to be given per order, informed nurse to not give Flomax and to hold Lasix as well.
[2021-10-10] MEDS: salt irrigation nasal spray 45 ML SPRAY NS PRN (23:43)
--- NOTE | 2021-10-10 23:48 | NUR ---
RT paged for stat ABG results per MD request. Before RT was able to obtain result Dr. Mendosa called back for result. At time of call patient was stuck twice for ABG, blood was drawn on second attempt but nurse was informed RT was unsuccessful in obtaining ABG, Dr. Mendosa informed. Nurse instructed to repeat attempt ABG if O2 sats falls below 93%. Patient still has no c/o of distress or SOB but states nose is "stuffy". Nurse admin saline nasal spray at that time and assisted patient with blowing nose. 4L of O2 now delivered via mouth current O2 sat is 98%
[2021-10-11] VITALS (25 sets, daily range): BP systolic 88–124; BP diastolic 51–70
[2021-10-11] MEDS: ipratropium/albuterol 3ml nebule NEB SCH ×7 (00:17→22:48)
--- NOTE | 2021-10-11 05:15 | NUR ---
Once returning from break informed Dr. Mendosa called and states he wants all labs and x-ray results when he arrives at 0600. X-rays and labs are currently being done on the floor at this time.
[2021-10-11 06:12] LABS: BASOPHILS % (AUTO) 0.2 % (0-1); EOSINOPHILS # (AUTO) 0.5 X10'3 (0-0.9); EOSINOPHILS % (AUTO) 3.4 % (0-6); HEMATOCRIT 29.8 % (42.0-52.0); HEMOGLOBIN 9.8 g/dl (14.0-17.9); LYMPHOCYTES # (AUTO) 0.5 X10'3 (1.1-4.8); LYMPHOCYTES % (AUTO) 3.2 % (21-51); MEAN CORPUSCULAR HEMOGLOBIN 30.5 PG (27.0-31.0); MEAN CORPUSCULAR VOLUME 92.3 FL (78-98); MEAN PLATELET VOLUME 8.1 FL (7.4-10.4); NEUTROPHILS % (AUTO) 87.2 % (42-75); PLATELET COUNT 332 X10'3 (140-440); RED BLOOD COUNT 3.23 X10'6 (4.70-6.10); WHITE BLOOD COUNT 16.1 X10'3 (4.5-11.0)
[2021-10-11 06:19] LABS: ALANINE AMINOTRANSFERASE 67 U/L (12-78); ALBUMIN/GLOBULIN RATIO 0.7 (1.1-1.5); ALKALINE PHOSPHATASE 83 IU/L (46-116); ANION GAP 4 (8-16); ASPARTATE AMINO TRANSFERASE 37 U/L (10-37); BLOOD UREA NITROGEN 19 MG/DL (7-18); BUN/CREATININE RATIO 36.5 (5.4-32.0); CALCIUM 7.9 MG/DL (8.5-10.1); CHLORIDE 103 MMOL/L (99-107); CREATININE 0.52 MG/DL (0.60-1.10); GLUCOSE 95 MG/DL (70-104); POTASSIUM 4.3 MMOL/L (3.5-5.1); SODIUM 139 MMOL/L (135-145); TOTAL CARBON DIOXIDE 32.1 MMOL/L (24-32); TOTAL PROTEIN 4.9 G/DL (6.4-8.2); eGFR > 90 ML/MIN
[2021-10-11] MEDS: furosemide 20 MG/2 ML vial IV SCH ×2 (08:00→13:40)
[2021-10-11] MEDS: aspirin 325mg tablet, delayed-release (Ecotrin) PO SCH (08:42)
[2021-10-11] MEDS: ascorbic acid 500mg tablet PO SCH (08:42)
[2021-10-11] MEDS: multivitamins, therapeutics tablet PO SCH (08:42)
[2021-10-11] MEDS: CEFEPIME 2gm in D5W 50mL 50 ML IV SCH ×2 (08:43→21:07)
[2021-10-11] MEDS: lactose-reduced food (Ensure Enlive) - 237ml bottle PO SCH ×3 (08:43→13:39)
[2021-10-11] MEDS: midodrine tablet 2.5 MG TABLET PO SCH ×3 (08:43→17:17)
[2021-10-11 09:07] LABS: ABG HCO3 30.1 mmol/L (22.0-26.0); ABG OXYGEN SATURATION 96.9 % (94-97); ABG PCO2 (T) 41.9 mmHg (35.0-48.0); ABG PO2 (T) 87.3 mmHg (75.0-100.0); ALLEN'S TEST POSITIVE; FMetHb 0.5 % (0.0-1.5); FO2Hb 96.4 % (94-97); PATIENT TEMPERATURE 37.3; RESPIRATORY RATE 10 b/min; TOTAL HEMOGLOBIN 10.6 G/dl (14.0-18.0)
[2021-10-11] MEDS: bisacodyl 10mg suppository rectal RC PRN (13:40)
[2021-10-11] MEDS: albumin (Human) 5% 250ml 250 ML IV PRN (13:43)
[2021-10-11] MEDS: sodium chloride 0.45% 1,000 ML IV SCH (17:17)
[2021-10-11] MEDS: insulin glargine (Lantus) pen - multi-dose SQ SCH (21:00)
[2021-10-11] MEDS: atorvastatin 10mg tablet PO SCH (21:07)
[2021-10-11] MEDS: apixaban 2.5mg tablet PO SCH (21:07)
[2021-10-11] MEDS: ondansetron/PF 4mg/2ml inj IV PRN (21:30)
[2021-10-12] VITALS (24 sets, daily range): BP systolic 95–123; BP diastolic 48–66
[2021-10-12] MEDS: ipratropium/albuterol 3ml nebule NEB SCH ×6 (02:43→23:14)
[2021-10-12] MEDS: metoclopramide 5 mg/ml inj IV PRN (05:44)
--- NOTE | 2021-10-12 06:26 | NUR ---
Patient report given to Dorita DOUGLAS, pertinent updates given and plan of care reviewed.
[2021-10-12 06:31] LABS: BASOPHILS # (AUTO) 0.1 X10'3 (0-0.2); BASOPHILS % (AUTO) 0.4 % (0-1); EOSINOPHILS # (AUTO) 0.2 X10'3 (0-0.9); EOSINOPHILS % (AUTO) 1.1 % (0-6); HEMATOCRIT 29.2 % (42.0-52.0); HEMOGLOBIN 9.8 g/dl (14.0-17.9); LYMPHOCYTES # (AUTO) 0.5 X10'3 (1.1-4.8); LYMPHOCYTES % (AUTO) 3.5 % (21-51); MEAN CORPUSCULAR HEMOGLOBIN 30.7 PG (27.0-31.0); MEAN CORPUSCULAR HGB CONC 33.5 g/dL (33.0-36.5); MEAN CORPUSCULAR VOLUME 91.4 FL (78-98); MEAN PLATELET VOLUME 8.4 FL (7.4-10.4); MONOCYTES # (AUTO) 1.1 X10'3 (0-0.9); MONOCYTES % (AUTO) 7.2 % (2-12); NEUTROPHILS # (AUTO) 13.7 X10'3 (1.8-7.7); NEUTROPHILS % (AUTO) 87.8 % (42-75); PLATELET COUNT 334 X10'3 (140-440); RED CELL DISTRIBUTION WIDTH 14.6 % (11.5-14.5); WHITE BLOOD COUNT 15.6 X10'3 (4.5-11.0)
[2021-10-12] MEDS: CEFEPIME 2gm in D5W 50mL 50 ML IV SCH ×2 (07:46→20:14)
[2021-10-12] MEDS: furosemide 20 MG/2 ML vial IV SCH (07:55)
[2021-10-12] MEDS: ascorbic acid 500mg tablet PO SCH (07:55)
[2021-10-12] MEDS: multivitamins, therapeutics tablet PO SCH (07:55)
[2021-10-12] MEDS: lactose-reduced food (Ensure Enlive) - 237ml bottle PO SCH ×3 (07:55→17:54)
[2021-10-12] MEDS: aspirin 325mg tablet, delayed-release (Ecotrin) PO SCH (07:55)
[2021-10-12] MEDS: apixaban 2.5mg tablet PO SCH ×2 (07:55→20:14)
[2021-10-12 07:57] LABS: ALANINE AMINOTRANSFERASE 74 U/L (12-78); ALBUMIN 2.2 G/DL (3.4-5.0); ALBUMIN/GLOBULIN RATIO 0.7 (1.1-1.5); ALKALINE PHOSPHATASE 84 IU/L (46-116); ASPARTATE AMINO TRANSFERASE 44 U/L (10-37); BILIRUBIN,TOTAL 1.2 MG/DL (0.1-1.0); BLOOD UREA NITROGEN 18 MG/DL (7-18); BUN/CREATININE RATIO 37.5 (5.4-32.0); CREATININE 0.48 MG/DL (0.60-1.10); GLUCOSE 109 MG/DL (70-104); TOTAL CARBON DIOXIDE 30.2 MMOL/L (24-32); TOTAL PROTEIN 5.3 G/DL (6.4-8.2); eGFR > 90 ML/MIN
[2021-10-12] MEDS: midodrine tablet 2.5 MG TABLET PO SCH ×3 (08:08→16:00)
--- NOTE | 2021-10-12 08:46 | NUR ---
Left GONZALES drain removed buy Dr. Mendosa, chest midline surgical dressing changed as well as right gonzales drain dressing. Patient tolerated well, patient expressed he didnt get much sleep overnight and would like to rest before getting up to walk.
[2021-10-12] MEDS ORDERED: lactulose 20gm/30ml cup PO ONE (09:00)
--- NOTE | 2021-10-12 12:37 | NUR ---
F/u 10/12: Pt's PO has declined significantly w/ frequent refusals, avg 16% x 9 meals and 40% x 7 ONS partially meeting needs. It appears that his respiratory status has declined some, on 8L venturi mask per documentation. If PO intake does not improve, pt may benefit from supplemental TF to help meet nutrient needs if within POC. LBM 3/3 receiving PRN bowel care. Will continue to monitor. Recs: 1. Continue Regular diet EC7 texture and no red meats per pt preference 2. [place] Ensure Enlive TID; encourage PO 3. Routine bowel care 4. Weekly wts 5. IF PO does not improve, consider supplemental TF Addendum: 10/12/21 at [address] Amended: Links added.
[2021-10-12 13:16] LABS: POTASSIUM 4.1 MMOL/L (3.3-5.1)
[2021-10-12] MEDS: atorvastatin 10mg tablet PO SCH (20:14)
[2021-10-12] MEDS: insulin glargine (Lantus) pen - multi-dose SQ SCH (21:00)
[2021-10-13] VITALS (18 sets, daily range): BP systolic 99–122; BP diastolic 50–63
[2021-10-13] MEDS: ipratropium/albuterol 3ml nebule NEB SCH ×2 (03:08→07:43)
[2021-10-13] MEDS: metoclopramide 5 mg/ml inj IV PRN (05:45)
[2021-10-13 06:29] LABS: BASOPHILS % (AUTO) 0.2 % (0-1); EOSINOPHILS # (AUTO) 0.2 X10'3 (0-0.9); HEMATOCRIT 28.9 % (42.0-52.0); HEMOGLOBIN 9.5 g/dl (14.0-17.9); LYMPHOCYTES # (AUTO) 0.5 X10'3 (1.1-4.8); LYMPHOCYTES % (AUTO) 3.2 % (21-51); MEAN CORPUSCULAR HEMOGLOBIN 30.3 PG (27.0-31.0); MEAN CORPUSCULAR HGB CONC 32.8 g/dL (33.0-36.5); MEAN CORPUSCULAR VOLUME 92.3 FL (78-98); MEAN PLATELET VOLUME 8.2 FL (7.4-10.4); MONOCYTES # (AUTO) 1.2 X10'3 (0-0.9); NEUTROPHILS # (AUTO) 13.5 X10'3 (1.8-7.7); NEUTROPHILS % (AUTO) 87.6 % (42-75); PLATELET COUNT 343 X10'3 (140-440); RED BLOOD COUNT 3.13 X10'6 (4.70-6.10); RED CELL DISTRIBUTION WIDTH 14.9 % (11.5-14.5); WHITE BLOOD COUNT 15.5 X10'3 (4.5-11.0)
[2021-10-13 06:38] LABS: ALANINE AMINOTRANSFERASE 69 U/L (12-78); ALBUMIN 2.1 G/DL (3.4-5.0); ALBUMIN/GLOBULIN RATIO 0.7 (1.1-1.5); ALKALINE PHOSPHATASE 80 IU/L (46-116); ANION GAP 6 (8-16); ASPARTATE AMINO TRANSFERASE 40 U/L (10-37); BILIRUBIN,TOTAL 1.1 MG/DL (0.1-1.0); BLOOD UREA NITROGEN 18 MG/DL (7-18); CHLORIDE 101 MMOL/L (99-107); GLUCOSE 97 MG/DL (70-104); POTASSIUM 3.5 MMOL/L (3.5-5.1); SODIUM 138 MMOL/L (135-145); TOTAL CARBON DIOXIDE 30.9 MMOL/L (24-32); TOTAL PROTEIN 5.1 G/DL (6.4-8.2); eGFR > 90 ML/MIN
[2021-10-13] MEDS: acetaminophen w/codeine (30MG) #3 tablet PO PRN ×3 (06:44→21:39)
[2021-10-13] MEDS: CEFEPIME 2gm in D5W 50mL 50 ML IV SCH ×2 (08:16→21:39)
[2021-10-13] MEDS: multivitamins, therapeutics tablet PO SCH (08:17)
[2021-10-13] MEDS: ascorbic acid 500mg tablet PO SCH (08:17)
[2021-10-13] MEDS: apixaban 2.5mg tablet PO SCH (08:17)
[2021-10-13] MEDS: aspirin 325mg tablet, delayed-release (Ecotrin) PO SCH (08:17)
[2021-10-13] MEDS: lactose-reduced food (Ensure Enlive) - 237ml bottle PO SCH ×3 (08:17→18:27)
[2021-10-13] MEDS: midodrine tablet 2.5 MG TABLET PO SCH ×3 (08:17→16:41)
[2021-10-13] MEDS: furosemide 20 MG/2 ML vial IV SCH (08:17)
[2021-10-13] MEDS ORDERED: potassium Cl 40MEQ/250ML bag 250 ML IV PRN (09:00)
[2021-10-13] MEDS ORDERED: potassium CL 10mEq/100ml bag 100 ML IV PRN (09:00)
[2021-10-13] MEDS ORDERED: potassium Cl 20mEq/100mL bag 100 ML IV PRN (09:00)
[2021-10-13] MEDS ORDERED: potassium Cl 40MEQ/1/2NS 520ml 520 ML IV PRN (09:00)
[2021-10-13] MEDS ORDERED: potassium Cl 20 mEq SR tablet PO PRN (09:00)
[2021-10-13] MEDS ORDERED: magnesium 4gm in 100ml NS 100 ML IV PRN (09:00)
[2021-10-13] MEDS ORDERED: magnesium 2GM in 50ml NS 50 ML IV PRN (09:00)
--- NOTE | 2021-10-13 09:02 | NUR ---
CABG consult: Addressed in RD assessment on 10/05 Addendum: 10/13/21 at [address] Amended: Links added.
[2021-10-13] MEDS ORDERED: ipratropium/albuterol 3ml nebule NEB PRN (09:55)
[2021-10-13] MEDS: levoFLOXACIN-Levaquin 500mg/D5 100 ML IV SCH (11:18)
[2021-10-13] MEDS: magnesium Cl slow-release 64mg tablet PO SCH (20:01)
[2021-10-13] MEDS: potassium Cl 20 mEq SR tablet PO SCH (20:02)
[2021-10-13] MEDS: atorvastatin 10mg tablet PO SCH (20:05)
[2021-10-13] MEDS: tamsulosin 0.4mg capsule PO SCH (21:39)
[2021-10-14 02:00] VITALS: BP 108/57
--- NOTE | 2021-10-14 05:51 | NUR ---
chest midline dressing intact gonzales drained 200cc in this shift no complain of chest pain at this time will continue to monitor and report changes
[2021-10-14 06:00] VITALS: BP 104/57
--- NOTE | 2021-10-14 06:22 | NUR ---
Problems reprioritized. Patient report given, questions answered & plan of care reviewed with Tristan DOUGLAS.
[2021-10-14] MEDS: CEFEPIME 2gm in D5W 50mL 50 ML IV SCH ×2 (07:43→20:51)
[2021-10-14] MEDS: aspirin 325mg tablet, delayed-release (Ecotrin) PO SCH (07:44)
[2021-10-14] MEDS: levoFLOXACIN-Levaquin 500mg/D5 100 ML IV SCH (07:44)
[2021-10-14] MEDS: potassium Cl 20 mEq SR tablet PO SCH ×2 (07:44→20:54)
[2021-10-14] MEDS: furosemide 20 MG/2 ML vial IV SCH (07:44)
[2021-10-14] MEDS: lactose-reduced food (Ensure Enlive) - 237ml bottle PO SCH ×3 (07:44→19:59)
[2021-10-14] MEDS: magnesium Cl slow-release 64mg tablet PO SCH ×2 (07:45→20:53)
[2021-10-14] MEDS: multivitamins, therapeutics tablet PO SCH (07:45)
[2021-10-14] MEDS: midodrine tablet 2.5 MG TABLET PO SCH ×3 (07:45→20:01)
[2021-10-14] MEDS: ascorbic acid 500mg tablet PO SCH (07:46)
[2021-10-14 08:05] LABS: BASOPHILS # (AUTO) 0.1 X10'3 (0-0.2); BASOPHILS % (AUTO) 0.6 % (0-1); EOSINOPHILS # (AUTO) 0.4 X10'3 (0-0.9); EOSINOPHILS % (AUTO) 2.6 % (0-6); LYMPHOCYTES # (AUTO) 0.7 X10'3 (1.1-4.8); LYMPHOCYTES % (AUTO) 4.2 % (21-51); MEAN PLATELET VOLUME 7.7 FL (7.4-10.4); MONOCYTES # (AUTO) 1.3 X10'3 (0-0.9); MONOCYTES % (AUTO) 7.8 % (2-12); NEUTROPHILS # (AUTO) 14.7 X10'3 (1.8-7.7); NEUTROPHILS % (AUTO) 84.8 % (42-75); PLATELET COUNT 325 X10'3 (140-440); WHITE BLOOD COUNT 17.3 X10'3 (4.5-11.0)
[2021-10-14 08:26] LABS: HEMATOCRIT 32.5 % (42.0-52.0); MEAN CORPUSCULAR HEMOGLOBIN 31.1 PG (27.0-31.0); MEAN CORPUSCULAR HGB CONC 33.8 g/dL (33.0-36.5)
[2021-10-14 08:27] LABS: RED CELL DISTRIBUTION WIDTH 14.8 % (11.5-14.5)
[2021-10-14 08:38] LABS: ALBUMIN 2.1 G/DL (3.4-5.0); ANION GAP 5 (8-16); BLOOD UREA NITROGEN 21 MG/DL (7-18); BUN/CREATININE RATIO 42.9 (5.4-32.0); CALCIUM 8.3 MG/DL (8.5-10.1); CHLORIDE 101 MMOL/L (99-107); CREATININE 0.49 MG/DL (0.60-1.10); GLUCOSE 97 MG/DL (70-104); POTASSIUM 4.7 MMOL/L (3.5-5.1); SODIUM 135 MMOL/L (135-145); TOTAL CARBON DIOXIDE 28.7 MMOL/L (24-32); eGFR > 90 ML/MIN
[2021-10-14] MEDS: acetaminophen w/codeine (30MG) #3 tablet PO PRN ×2 (09:15→20:53)
[2021-10-14 11:00] VITALS: BP 97/53
[2021-10-14] MEDS ORDERED: TESTOSTERONE CYPIONATE 200 MG/ML VIAL IM ONE (13:25)
[2021-10-14 14:00] VITALS: BP 109/61
--- NOTE | 2021-10-14 14:37 | NUR ---
F/u 10/14: Pt nutrition status remains poor w/ continued meal refusals and fluctuating intake ~22% avg meals past 6 days only participating in 9 meals throughout that time period in addition to ~41% Ensures not meeting needs. Past 3 meals most consistent intake in past week ~67% which is improved though overall not meeting needs. Noted conflicting documentation of LBM; last number BM 10/06 vs moderate BM's 10/13 and 10/[address] d/w RN who reports LBM 10/13. Pt seen by RD; RD encouraged pt PO intake for wound healing and discussed alternative nutrition needs if poor PO persists in order to successfully heal surgical wound if pt agreeable. Pt reports low appetite w/ particular food preferences though when RD asks for preferences pt gives no information. Pt does not seem concerned w/ current intake trends; reports only eats two meals/day at home typically though immediately followed that statement w/ the fact he is likely done eating for rest of the day following breakfast today. RD continued to encourage PO intake; pt is agreeable to strawberry shake w/ breakfast dietary notified. RD contacted PA via TC regarding nutrition status; IF current PO trends do not maintain would benefit from temporary supplemental EN to assist meeting healing needs. Given mild weakness, hands +2 edema, and poor PO intake past 6 days pt meets non-severe malnutrition criteria; PA notified. Will continue to monitor. Recs: 1. Continue Regular diet EC7 texture and no red meats per pt preference 2. [place] Ensure Enlive TID, strawberry shake WS; encourage PO meals/ONS 3. Routine bowel care 4. Weekly wts 5. IF most recent PO trends do not persist, consider supplemental TF to optimize nutrition status post-op Addendum: 10/14/21 at [address] Amended: Links added.
[2021-10-14 18:00] VITALS: BP 103/59
[2021-10-14] MEDS ORDERED: lactose-reduced food (Ensure High Protein) 237ml bottle PO SCH (18:00)
--- NOTE | 2021-10-14 18:10 | NUR ---
Patient in room MED 310. I have received report from MISAEL Hudson and had the opportunity to ask questions and assume patient care. Patient just finished dinner, he is A&O x4, BENITO and is appropriate.
--- NOTE | 2021-10-14 19:08 | NUR ---
Per Dr. Mendosa order CTA of chest to r/o PE for tomorrow.
[2021-10-14] MEDS: atorvastatin 10mg tablet PO SCH (20:54)
[2021-10-14] MEDS: tamsulosin 0.4mg capsule PO SCH (20:54)
[2021-10-14] MEDS: salt irrigation nasal spray 45 ML SPRAY NS PRN (20:56)
[2021-10-14 22:00] VITALS: BP 117/57
[2021-10-15 02:00] VITALS: BP 86/53
[2021-10-15 05:41] LABS: BASOPHILS # (AUTO) 0.1 X10'3 (0-0.2); BASOPHILS % (AUTO) 0.4 % (0-1); EOSINOPHILS # (AUTO) 0.2 X10'3 (0-0.9); EOSINOPHILS % (AUTO) 1.6 % (0-6); HEMATOCRIT 28.3 % (42.0-52.0); HEMOGLOBIN 9.2 g/dl (14.0-17.9); LYMPHOCYTES # (AUTO) 0.5 X10'3 (1.1-4.8); LYMPHOCYTES % (AUTO) 3.2 % (21-51); MEAN CORPUSCULAR HEMOGLOBIN 29.8 PG (27.0-31.0); MEAN CORPUSCULAR HGB CONC 32.4 g/dL (33.0-36.5); MEAN PLATELET VOLUME 8.3 FL (7.4-10.4); MONOCYTES # (AUTO) 1.2 X10'3 (0-0.9); MONOCYTES % (AUTO) 8.2 % (2-12); NEUTROPHILS # (AUTO) 13.1 X10'3 (1.8-7.7); NEUTROPHILS % (AUTO) 86.6 % (42-75); PLATELET COUNT 296 X10'3 (140-440); RED BLOOD COUNT 3.08 X10'6 (4.70-6.10); RED CELL DISTRIBUTION WIDTH 14.9 % (11.5-14.5); WHITE BLOOD COUNT 15.1 X10'3 (4.5-11.0)
[2021-10-15 05:54] LABS: ANION GAP 2 (8-16); BLOOD UREA NITROGEN 22 MG/DL (7-18); BUN/CREATININE RATIO 61.1 (5.4-32.0); CALCIUM 7.8 MG/DL (8.5-10.1); CHLORIDE 101 MMOL/L (99-107); CREATININE 0.36 MG/DL (0.60-1.10); GLUCOSE 104 MG/DL (70-104); SODIUM 136 MMOL/L (135-145); TOTAL CARBON DIOXIDE 32.6 MMOL/L (24-32); eGFR > 90 ML/MIN
[2021-10-15 06:00] VITALS: BP 102/58
--- NOTE | 2021-10-15 06:47 | NUR ---
Problems reprioritized. Patient report given, questions answered & plan of care reviewed with MISAEL Myers.
[2021-10-15] MEDS ORDERED: iohexol 350MG/ML 100ml bottle IV ONE (07:52)
[2021-10-15] MEDS: lactose-reduced food (Ensure Enlive) - 237ml bottle PO SCH ×5 (08:00→20:30)
[2021-10-15] MEDS: midodrine tablet 2.5 MG TABLET PO SCH (09:10)
[2021-10-15] MEDS: ascorbic acid 500mg tablet PO SCH (09:10)
[2021-10-15] MEDS: magnesium Cl slow-release 64mg tablet PO SCH ×2 (09:11→20:00)
[2021-10-15] MEDS: aspirin 325mg tablet, delayed-release (Ecotrin) PO SCH (09:11)
[2021-10-15] MEDS: furosemide 20 MG/2 ML vial IV SCH (09:11)
[2021-10-15] MEDS: levoFLOXACIN-Levaquin 500mg/D5 100 ML IV SCH (09:12)
[2021-10-15] MEDS: CEFEPIME 2gm in D5W 50mL 50 ML IV SCH ×2 (09:16→19:40)
[2021-10-15] MEDS: potassium Cl 20 mEq SR tablet PO SCH ×2 (09:58→19:40)
[2021-10-15] MEDS: multivitamins, therapeutics tablet PO SCH (09:59)
[2021-10-15] MEDS: megestrol acetate 400mg/10ml UD oral suspension PO SCH (09:59)
[2021-10-15] MEDS: acetaminophen w/codeine (30MG) #3 tablet PO PRN ×2 (10:35→19:58)
[2021-10-15 11:00] VITALS: BP 109/62
[2021-10-15] MEDS: midodrine 5mg tablet PO SCH ×2 (14:07→17:33)
[2021-10-15 15:00] VITALS: BP 136/70
[2021-10-15 18:00] VITALS: BP 138/72
[2021-10-15] MEDS: tamsulosin 0.4mg capsule PO SCH (19:40)
[2021-10-15] MEDS: atorvastatin 10mg tablet PO SCH (19:40)
[2021-10-15 22:00] VITALS: BP 99/62
[2021-10-16] VITALS (7 sets, daily range): BP systolic 98–158; BP diastolic 48–59
[2021-10-16 06:21] LABS: BASOPHILS # (AUTO) 0.1 X10'3 (0-0.2); BASOPHILS % (AUTO) 0.4 % (0-1); EOSINOPHILS # (AUTO) 0.2 X10'3 (0-0.9); EOSINOPHILS % (AUTO) 1.6 % (0-6); HEMATOCRIT 25.9 % (42.0-52.0); HEMOGLOBIN 8.5 g/dl (14.0-17.9); LYMPHOCYTES # (AUTO) 0.6 X10'3 (1.1-4.8); LYMPHOCYTES % (AUTO) 4.3 % (21-51); MEAN CORPUSCULAR HEMOGLOBIN 30.1 PG (27.0-31.0); MEAN CORPUSCULAR HGB CONC 32.7 g/dL (33.0-36.5); MEAN CORPUSCULAR VOLUME 91.9 FL (78-98); MEAN PLATELET VOLUME 8.7 FL (7.4-10.4); MONOCYTES # (AUTO) 1.3 X10'3 (0-0.9); NEUTROPHILS # (AUTO) 11.8 X10'3 (1.8-7.7); NEUTROPHILS % (AUTO) 84.7 % (42-75); PLATELET COUNT 303 X10'3 (140-440); RED BLOOD COUNT 2.82 X10'6 (4.70-6.10); RED CELL DISTRIBUTION WIDTH 14.8 % (11.5-14.5)
[2021-10-16 06:26] LABS: ANION GAP 3 (8-16); BLOOD UREA NITROGEN 20 MG/DL (7-18); BUN/CREATININE RATIO 54.1 (5.4-32.0); CALCIUM 7.8 MG/DL (8.5-10.1); CHLORIDE 102 MMOL/L (99-107); CREATININE 0.37 MG/DL (0.60-1.10); GLUCOSE 98 MG/DL (70-104); MAGNESIUM 1.8 MG/DL (1.5-2.4); POTASSIUM 5.1 MMOL/L (3.5-5.1); SODIUM 136 MMOL/L (135-145); TOTAL CARBON DIOXIDE 31.5 MMOL/L (24-32); eGFR > 90 ML/MIN
[2021-10-16] MEDS: CEFEPIME 2gm in D5W 50mL 50 ML IV SCH ×2 (08:39→19:55)
[2021-10-16] MEDS: aspirin 325mg tablet, delayed-release (Ecotrin) PO SCH (08:40)
[2021-10-16] MEDS: furosemide 20 MG/2 ML vial IV SCH (08:40)
[2021-10-16] MEDS: ascorbic acid 500mg tablet PO SCH (08:40)
[2021-10-16] MEDS: magnesium Cl slow-release 64mg tablet PO SCH ×2 (08:40→19:59)
[2021-10-16] MEDS: multivitamins, therapeutics tablet PO SCH (08:41)
[2021-10-16] MEDS: midodrine 5mg tablet PO SCH ×3 (08:41→15:56)
[2021-10-16] MEDS ORDERED: bisacodyl 10mg suppository rectal RC STA (08:41)
[2021-10-16] MEDS: lactose-reduced food (Ensure Enlive) - 237ml bottle PO SCH (09:00)
[2021-10-16] MEDS: megestrol acetate 400mg/10ml UD oral suspension PO SCH (10:12)
[2021-10-16] MEDS: pantoprazole 40mg Tablet.DR PO SCH (10:13)
[2021-10-16] MEDS: folic acid 1mg tablet PO SCH (10:13)
[2021-10-16] MEDS: levoFLOXACIN 500mg tablet PO SCH (11:58)
[2021-10-16] MEDS: iron polysaccharide complex 150mg capsule PO SCH ×2 (11:58→19:58)
[2021-10-16 12:37] LABS: CLARITY,URINE SLIGHTLY CLOUDY (Clear); COLOR,URINE YELLOW (Yellow); GLUCOSE, URINE NEGATIVE (Neg); KETONES,URINE NEGATIVE (Neg); LEUKOCYTE ESTERASE ,URINE NEGATIVE (Neg); NITRITES, URINE NEGATIVE (Neg); OCCULT BLOOD,URINE LARGE (Neg); PH,URINE 5.5 (4.8-8.0); PROTEIN,URINE NEGATIVE (Neg); UROBILINOGEN,URINE 0.2 E.U/dL (0.2-1.0)
[2021-10-16 12:43] LABS: UA COLLECTION TYPE FOLEY CATH
[2021-10-16 13:05] LABS: BACTERIA,URINE NONE SEEN /HPF (Neg); MUCUS STRANDS FEW /LPF (Neg); RBC,URINE 20-50 /HPF (0-2); SQUAMOUS EPITHELIAL CELL,UR FEW /LPF (FEW); WBC,URINE 0-4 /HPF (0-4)
[2021-10-16 13:06] LABS: HYALINE CASTS 0-3 /LPF (NEGATIVE)
[2021-10-16 13:07] LABS: TRANSITIONAL EPI CELLS,URINE FEW /HPF
--- NOTE | 2021-10-16 18:00 | NUR ---
Patient in room MED 310. I have received report from WILTON DOUGLAS and had the opportunity to ask questions and assume patient care.
[2021-10-16] MEDS: tamsulosin 0.4mg capsule PO SCH (19:59)
[2021-10-16] MEDS: atorvastatin 10mg tablet PO SCH (19:59)
[2021-10-17 02:00] VITALS: BP 102/53
[2021-10-17 06:00] VITALS: BP 101/54
[2021-10-17 06:06] LABS: BASOPHILS % (AUTO) 0.2 % (0-1); EOSINOPHILS # (AUTO) 0.1 X10'3 (0-0.9); HEMATOCRIT 24.3 % (42.0-52.0); LYMPHOCYTES # (AUTO) 0.6 X10'3 (1.1-4.8); LYMPHOCYTES % (AUTO) 3.9 % (21-51); MEAN CORPUSCULAR HGB CONC 32.9 g/dL (33.0-36.5); MEAN CORPUSCULAR VOLUME 91.2 FL (78-98); MEAN PLATELET VOLUME 8.7 FL (7.4-10.4); MONOCYTES # (AUTO) 1.3 X10'3 (0-0.9); MONOCYTES % (AUTO) 8.7 % (2-12); NEUTROPHILS % (AUTO) 86.2 % (42-75); PLATELET COUNT 310 X10'3 (140-440); RED BLOOD COUNT 2.67 X10'6 (4.70-6.10); RED CELL DISTRIBUTION WIDTH 14.9 % (11.5-14.5); WHITE BLOOD COUNT 15.1 X10'3 (4.5-11.0)
[2021-10-17 06:15] LABS: ALBUMIN 1.8 G/DL (3.4-5.0); ANION GAP 1 (8-16); BLOOD UREA NITROGEN 15 MG/DL (7-18); BUN/CREATININE RATIO 40.5 (5.4-32.0); CALCIUM 7.8 MG/DL (8.5-10.1); CHLORIDE 99 MMOL/L (99-107); CREATININE 0.37 MG/DL (0.60-1.10); GLUCOSE 92 MG/DL (70-104); POTASSIUM 3.7 MMOL/L (3.5-5.1); SODIUM 127 MMOL/L (135-145); TOTAL CARBON DIOXIDE 26.7 MMOL/L (24-32); eGFR > 90 ML/MIN
--- NOTE | 2021-10-17 06:28 | NUR ---
Problems reprioritized. Patient report given, questions answered & plan of care reviewed with SEBASTIAN DOUGLAS.
--- NOTE | 2021-10-17 06:30 | NUR ---
Patient in room MED 310. I have received report from MISAEL Izaguirre and had the opportunity to ask questions and assume patient care. Addendum: 10/17/21 at 0738 by Malina Hogue RN Pt report recieved from MISAEL Joseph.
[2021-10-17] MEDS: ondansetron/PF 4mg/2ml inj IV PRN (07:44)
[2021-10-17] MEDS: lactose-reduced food (Ensure Enlive) - 237ml bottle PO SCH ×3 (08:00→17:59)
[2021-10-17] MEDS: furosemide 20 MG/2 ML vial IV SCH (08:05)
[2021-10-17] MEDS: CEFEPIME 2gm in D5W 50mL 50 ML IV SCH ×2 (08:05→22:58)
[2021-10-17] MEDS: acetaminophen w/codeine (30MG) #3 tablet PO PRN (08:20)
[2021-10-17] MEDS ORDERED: LEVO500T90 PO ×2 (08:32)
[2021-10-17] MEDS ORDERED: MIDO5TAB4 PO (08:32)
[2021-10-17] MEDS ORDERED: ACET-1 PO (08:32)
[2021-10-17] MEDS ORDERED: FOLI1TAB27 PO (08:32)
[2021-10-17] MEDS ORDERED: MEGE400O6 PO ×2 (08:32)
[2021-10-17] MEDS ORDERED: IRON150C13 PO (08:32)
[2021-10-17] MEDS ORDERED: FLO0.4C PO (08:35)
[2021-10-17 09:12] LABS: CLARITY,URINE CLEAR (Clear); GLUCOSE, URINE NEGATIVE (Neg); KETONES,URINE NEGATIVE (Neg); LEUKOCYTE ESTERASE ,URINE NEGATIVE (Neg); NITRITES, URINE NEGATIVE (Neg); OCCULT BLOOD,URINE TRACE-INTACT (Neg); PH,URINE 6.5 (4.8-8.0); PROTEIN,URINE NEGATIVE (Neg); UROBILINOGEN,URINE 0.2 E.U/dL (0.2-1.0)
[2021-10-17 09:13] LABS: COLOR,URINE STRAW (Yellow); UA COLLECTION TYPE FOLEY CATH
[2021-10-17 09:21] LABS: BACTERIA,URINE NONE SEEN /HPF (Neg); MUCUS STRANDS FEW /LPF (Neg); RBC,URINE 0-2 /HPF (0-2); SQUAMOUS EPITHELIAL CELL,UR NONE SEEN /LPF (FEW); WBC,URINE 0-4 /HPF (0-4)
[2021-10-17 09:22] LABS: FINE GRANULAR CAST 0-3 /LPF (NEGATIVE)
[2021-10-17 10:00] VITALS: BP 113/62
--- NOTE | 2021-10-17 10:11 | NUR ---
F/u 10/14: Pt PO intake improving, mostly ~78% avg of past 9 soft to chew meals and strawberry shake WS though pt refused one meal, and 75-100% intake of Ensure Enlive when pt consumes ONS though w/ pt refusing some ONS and documentation of ONS not available per EMR. Overall pt meeting estimated nutritional needs. LBM 10/16, bowel care available PRN. Pt continues w/ mild weakness though hands edema improved from +2 to +1 edema. No nutritional changes at this time. Will continue to monitor. Recs: 1. Continue Regular diet EC7 texture and no red meats per pt preference 2. [place] Ensure Enlive TID, strawberry shake WS; encourage PO meals/ONS 3. Routine bowel care 4. Weekly wts 5. IF PO intake declines, consider supplemental TF to optimize nutrition status post-op Addendum: 10/17/21 at [address] Amended: Links added. Addendum: 10/17/21 at [address] I have reviewed and agree with note by Data Collection SpecialistMahamed Reilly RD
[2021-10-17] MEDS: midodrine 5mg tablet PO SCH ×3 (10:29→15:37)
[2021-10-17] MEDS: folic acid 1mg tablet PO SCH (10:29)
[2021-10-17] MEDS: iron polysaccharide complex 150mg capsule PO SCH ×2 (10:29→22:48)
[2021-10-17] MEDS: ascorbic acid 500mg tablet PO SCH (10:30)
[2021-10-17] MEDS: aspirin 325mg tablet, delayed-release (Ecotrin) PO SCH (10:30)
[2021-10-17] MEDS: magnesium Cl slow-release 64mg tablet PO SCH ×2 (10:31→22:48)
[2021-10-17] MEDS: levoFLOXACIN 500mg tablet PO SCH (10:31)
[2021-10-17] MEDS: pantoprazole 40mg Tablet.DR PO SCH (10:32)
[2021-10-17] MEDS: tamsulosin 0.4mg capsule PO SCH (10:32)
[2021-10-17] MEDS: multivitamins, therapeutics tablet PO SCH (10:33)
[2021-10-17] MEDS: megestrol acetate 400mg/10ml UD oral suspension PO SCH (10:34)
[2021-10-17] MEDS: phenazopyridine 100mg tablet PO SCH ×3 (10:34→18:00)
--- NOTE | 2021-10-17 10:40 | NUR ---
Pt requested his AM PO meds to be delayed, administered all AM PO meds at 1030 per pt request.
--- NOTE | 2021-10-17 11:00 | NUR ---
D/C'd F/C per MD orders - pt tolerated well. Will continue to monitor.
[2021-10-17 12:51] LABS: ALBUMIN 2.3 G/DL (3.4-5.0); ANION GAP 8 (8-16); BLOOD UREA NITROGEN 17 MG/DL (7-18); BUN/CREATININE RATIO 25.4 (5.4-32.0); CALCIUM 8.1 MG/DL (8.5-10.1); CHLORIDE 97 MMOL/L (99-107); CREATININE 0.67 MG/DL (0.60-1.10); GLUCOSE 120 MG/DL (70-104); POTASSIUM 4.1 MMOL/L (3.5-5.1); SODIUM 135 MMOL/L (135-145); TOTAL CARBON DIOXIDE 30.4 MMOL/L (24-32); eGFR > 90 ML/MIN
[2021-10-17 14:00] VITALS: BP 110/57
[2021-10-17 18:00] VITALS: BP 98/51
--- NOTE | 2021-10-17 18:36 | NUR ---
Problems reprioritized. Patient report given, questions answered & plan of care reviewed with MISAEL Smith.
--- NOTE | 2021-10-17 18:41 | NUR ---
[place] documentation: I have reviewed and agree with all interventions, assessments performed and documented by MISAEL Radford.
--- NOTE | 2021-10-17 18:50 | NUR ---
Patient in room MED 310. I have received report from Malina RN orientee with Flori DOUGLAS and had the opportunity to ask questions and assume patient care.
[2021-10-17 22:00] VITALS: BP 101/53
[2021-10-17] MEDS: atorvastatin 10mg tablet PO SCH (22:48)
[2021-10-18 02:00] VITALS: BP 109/56
[2021-10-18 06:00] VITALS: BP 110/59
[2021-10-18 06:19] LABS: ALBUMIN 1.9 G/DL (3.4-5.0); ANION GAP -1 (8-16); BLOOD UREA NITROGEN 17 MG/DL (7-18); BUN/CREATININE RATIO 41.5 (5.4-32.0); CALCIUM 7.6 MG/DL (8.5-10.1); CHLORIDE 102 MMOL/L (99-107); CREATININE 0.41 MG/DL (0.60-1.10); GLUCOSE 101 MG/DL (70-104); POTASSIUM 4.1 MMOL/L (3.5-5.1); SODIUM 132 MMOL/L (135-145); TOTAL CARBON DIOXIDE 30.7 MMOL/L (24-32); eGFR > 90 ML/MIN
[2021-10-18 06:28] LABS: BASOPHILS % (AUTO) 0.4 % (0-1); EOSINOPHILS # (AUTO) 0.2 X10'3 (0-0.9); EOSINOPHILS % (AUTO) 1.9 % (0-6); HEMATOCRIT 25.1 % (42.0-52.0); HEMOGLOBIN 8.3 g/dl (14.0-17.9); LYMPHOCYTES # (AUTO) 0.6 X10'3 (1.1-4.8); LYMPHOCYTES % (AUTO) 5.5 % (21-51); MEAN CORPUSCULAR HEMOGLOBIN 29.8 PG (27.0-31.0); MEAN CORPUSCULAR VOLUME 90.3 FL (78-98); MEAN PLATELET VOLUME 8.3 FL (7.4-10.4); MONOCYTES # (AUTO) 1.1 X10'3 (0-0.9); NEUTROPHILS # (AUTO) 9.1 X10'3 (1.8-7.7); NEUTROPHILS % (AUTO) 82.2 % (42-75); PLATELET COUNT 298 X10'3 (140-440); RED BLOOD COUNT 2.78 X10'6 (4.70-6.10)
--- NOTE | 2021-10-18 06:41 | NUR ---
Problems reprioritized. Patient report given, questions answered & plan of care reviewed with Autumn DOUGLAS.
--- NOTE | 2021-10-18 06:48 | NUR ---
Patient in room MED 310. I have received report from Sarah DOUGLAS and had the opportunity to ask questions and assume patient care.
[2021-10-18] MEDS: lactose-reduced food (Ensure Enlive) - 237ml bottle PO SCH ×3 (07:54→17:56)
[2021-10-18] MEDS: megestrol acetate 400mg/10ml UD oral suspension PO SCH (08:00)
[2021-10-18] MEDS: magnesium Cl slow-release 64mg tablet PO SCH ×2 (09:03→20:57)
[2021-10-18] MEDS: midodrine 5mg tablet PO SCH ×3 (09:03→16:22)
[2021-10-18] MEDS: pantoprazole 40mg Tablet.DR PO SCH (09:03)
[2021-10-18] MEDS: aspirin 325mg tablet, delayed-release (Ecotrin) PO SCH (09:04)
[2021-10-18] MEDS: potassium Cl 20 mEq SR tablet PO SCH (09:04)
[2021-10-18] MEDS: multivitamins, therapeutics tablet PO SCH (09:04)
[2021-10-18] MEDS: iron polysaccharide complex 150mg capsule PO SCH ×2 (09:04→20:00)
[2021-10-18] MEDS: phenazopyridine 100mg tablet PO SCH ×3 (09:04→17:32)
[2021-10-18] MEDS: furosemide 40mg tablet PO SCH (09:05)
[2021-10-18] MEDS: folic acid 1mg tablet PO SCH (09:05)
[2021-10-18] MEDS: CEFEPIME 2gm in D5W 50mL 50 ML IV SCH ×2 (09:05→21:21)
[2021-10-18] MEDS: ascorbic acid 500mg tablet PO SCH (09:05)
[2021-10-18] MEDS ORDERED: bisacodyl 10mg suppository rectal RC PRN (09:50)
[2021-10-18 10:00] VITALS: BP 105/60
[2021-10-18] MEDS: bisacodyl 10mg suppository rectal RC PRN (10:11)
[2021-10-18] MEDS: levoFLOXACIN 500mg tablet PO SCH (12:00)
[2021-10-18 14:00] VITALS: BP 113/59
[2021-10-18] MEDS: metroNIDAZOLE-Flagyl 250mg/NS 50 ML IV SCH ×2 (16:21→23:16)
--- NOTE | 2021-10-18 17:56 | NUR ---
Problems reprioritized. Patient report given, questions answered & plan of care reviewed with Sarah DOUGLAS.
[2021-10-18 18:00] VITALS: BP 102/60
--- NOTE | 2021-10-18 18:34 | NUR ---
Patient in room MED 310. I have received report from Autumn DOUGLAS and had the opportunity to ask questions and assume patient care.
[2021-10-18] MEDS: tamsulosin 0.4mg capsule PO SCH (20:56)
[2021-10-18] MEDS: docusate sod 100mg capsule PO SCH (20:56)
[2021-10-18] MEDS: atorvastatin 10mg tablet PO SCH (20:56)
[2021-10-18 22:00] VITALS: BP 97/57
[2021-10-18] MEDS: Melatonin 3mg tablet PO SCH (23:22)
[2021-10-19 02:00] VITALS: BP 94/56
--- NOTE | 2021-10-19 06:37 | NUR ---
Problems reprioritized. Patient report given, questions answered & plan of care reviewed with TIEN DOUGLAS.
--- NOTE | 2021-10-19 06:40 | NUR ---
Patient in room MED 310. I have received report from Sarah DOUGLAS and had the opportunity to ask questions and assume patient care.
[2021-10-19 07:07] LABS: BASOPHILS % (AUTO) 0.4 % (0-1); EOSINOPHILS # (AUTO) 0.2 X10'3 (0-0.9); EOSINOPHILS % (AUTO) 1.4 % (0-6); HEMATOCRIT 26.1 % (42.0-52.0); HEMOGLOBIN 8.5 g/dl (14.0-17.9); LYMPHOCYTES # (AUTO) 0.5 X10'3 (1.1-4.8); LYMPHOCYTES % (AUTO) 4.7 % (21-51); MEAN CORPUSCULAR HEMOGLOBIN 29.8 PG (27.0-31.0); MEAN CORPUSCULAR HGB CONC 32.6 g/dL (33.0-36.5); MEAN CORPUSCULAR VOLUME 91.5 FL (78-98); MEAN PLATELET VOLUME 8.8 FL (7.4-10.4); MONOCYTES # (AUTO) 1.1 X10'3 (0-0.9); MONOCYTES % (AUTO) 9.5 % (2-12); NEUTROPHILS # (AUTO) 9.7 X10'3 (1.8-7.7); PLATELET COUNT 331 X10'3 (140-440); RED BLOOD COUNT 2.86 X10'6 (4.70-6.10); RED CELL DISTRIBUTION WIDTH 14.8 % (11.5-14.5); WHITE BLOOD COUNT 11.6 X10'3 (4.5-11.0)
[2021-10-19 07:08] LABS: ANION GAP 4 (8-16); BLOOD UREA NITROGEN 16 MG/DL (7-18); CHLORIDE 100 MMOL/L (99-107); GLUCOSE 99 MG/DL (70-104); POTASSIUM 3.9 MMOL/L (3.5-5.1); SODIUM 134 MMOL/L (135-145); TOTAL CARBON DIOXIDE 29.6 MMOL/L (24-32); eGFR > 90 ML/MIN
[2021-10-19 07:12] VITALS: BP 84/51
[2021-10-19] MEDS: pantoprazole 40mg Tablet.DR PO SCH (07:47)
[2021-10-19] MEDS: CEFEPIME 2gm in D5W 50mL 50 ML IV SCH ×2 (07:47→19:36)
[2021-10-19] MEDS: folic acid 1mg tablet PO SCH (07:52)
[2021-10-19] MEDS: multivitamins, therapeutics tablet PO SCH (07:52)
[2021-10-19] MEDS: magnesium Cl slow-release 64mg tablet PO SCH ×2 (07:52→19:37)
[2021-10-19] MEDS: ascorbic acid 500mg tablet PO SCH (07:52)
[2021-10-19] MEDS: phenazopyridine 100mg tablet PO SCH ×3 (07:52→19:37)
[2021-10-19] MEDS: iron polysaccharide complex 150mg capsule PO SCH ×2 (07:52→19:39)
[2021-10-19] MEDS: midodrine 5mg tablet PO SCH ×3 (07:52→16:31)
[2021-10-19] MEDS: potassium Cl 20 mEq SR tablet PO SCH (07:52)
[2021-10-19] MEDS: aspirin 325mg tablet, delayed-release (Ecotrin) PO SCH (07:52)
[2021-10-19] MEDS: megestrol acetate 400mg/10ml UD oral suspension PO SCH (07:57)
[2021-10-19] MEDS: metroNIDAZOLE-Flagyl 250mg/NS 50 ML IV SCH (08:00)
[2021-10-19] MEDS: furosemide 40mg tablet PO SCH (08:00)
[2021-10-19] MEDS: docusate sod 100mg capsule PO SCH ×2 (08:00→19:38)
[2021-10-19] MEDS: lactose-reduced food (Ensure Enlive) - 237ml bottle PO SCH ×3 (08:00→18:00)
[2021-10-19 11:00] VITALS: BP 98/60
[2021-10-19] MEDS: levoFLOXACIN 500mg tablet PO SCH (11:00)
[2021-10-19 16:11] VITALS: BP 93/56
[2021-10-19 18:00] VITALS: BP 111/68
--- NOTE | 2021-10-19 18:06 | NUR ---
Problems reprioritized. Patient report given, questions answered & plan of care reviewed with MARIE DOUGLAS.
[2021-10-19] MEDS: atorvastatin 10mg tablet PO SCH (19:39)
[2021-10-19] MEDS: tamsulosin 0.4mg capsule PO SCH (19:39)
[2021-10-19] MEDS: Melatonin 3mg tablet PO SCH (20:01)
[2021-10-19 22:00] VITALS: BP 120/64
[2021-10-20 02:00] VITALS: BP 103/60
--- NOTE | 2021-10-20 06:32 | NUR ---
Problems reprioritized. Patient report given, questions answered & plan of care reviewed with MISAEL COTA.
[2021-10-20 07:09] LABS: BASOPHILS % (AUTO) 0.4 % (0-1); EOSINOPHILS # (AUTO) 0.2 X10'3 (0-0.9); EOSINOPHILS % (AUTO) 2.1 % (0-6); HEMATOCRIT 27.7 % (42.0-52.0); LYMPHOCYTES # (AUTO) 0.6 X10'3 (1.1-4.8); MEAN CORPUSCULAR HEMOGLOBIN 29.8 PG (27.0-31.0); MEAN CORPUSCULAR HGB CONC 32.6 g/dL (33.0-36.5); MEAN CORPUSCULAR VOLUME 91.4 FL (78-98); MEAN PLATELET VOLUME 7.9 FL (7.4-10.4); MONOCYTES # (AUTO) 1.1 X10'3 (0-0.9); MONOCYTES % (AUTO) 10.5 % (2-12); NEUTROPHILS # (AUTO) 8.8 X10'3 (1.8-7.7); PLATELET COUNT 387 X10'3 (140-440); RED BLOOD COUNT 3.03 X10'6 (4.70-6.10); RED CELL DISTRIBUTION WIDTH 15.1 % (11.5-14.5); WHITE BLOOD COUNT 10.8 X10'3 (4.5-11.0)
[2021-10-20 07:33] LABS: ANION GAP 7 (8-16); BLOOD UREA NITROGEN 16 MG/DL (7-18); BUN/CREATININE RATIO 29.6 (5.4-32.0); CALCIUM 8.1 MG/DL (8.5-10.1); CHLORIDE 103 MMOL/L (99-107); CREATININE 0.54 MG/DL (0.60-1.10); GLUCOSE 94 MG/DL (70-104); POTASSIUM 3.9 MMOL/L (3.5-5.1); SODIUM 136 MMOL/L (135-145); TOTAL CARBON DIOXIDE 25.9 MMOL/L (24-32); eGFR > 90 ML/MIN
[2021-10-20] MEDS: docusate sod 100mg capsule PO SCH ×2 (07:46→20:50)
[2021-10-20] MEDS: aspirin 325mg tablet, delayed-release (Ecotrin) PO SCH (07:47)
[2021-10-20] MEDS: iron polysaccharide complex 150mg capsule PO SCH ×2 (07:49→20:49)
[2021-10-20] MEDS: potassium Cl 20 mEq SR tablet PO SCH (07:49)
[2021-10-20] MEDS: folic acid 1mg tablet PO SCH (07:50)
[2021-10-20] MEDS: ascorbic acid 500mg tablet PO SCH (07:50)
[2021-10-20] MEDS: multivitamins, therapeutics tablet PO SCH (07:51)
[2021-10-20] MEDS: midodrine 5mg tablet PO SCH ×3 (07:51→16:29)
[2021-10-20] MEDS: magnesium Cl slow-release 64mg tablet PO SCH ×2 (07:51→20:49)
[2021-10-20] MEDS: pantoprazole 40mg Tablet.DR PO SCH (07:51)
[2021-10-20] MEDS: salt irrigation nasal spray 45 ML SPRAY NS PRN (07:55)
[2021-10-20] MEDS: phenazopyridine 100mg tablet PO SCH ×3 (08:00→18:00)
[2021-10-20] MEDS: megestrol acetate 400mg/10ml UD oral suspension PO SCH (08:00)
[2021-10-20] MEDS ORDERED: furosemide 20MG tablet PO SCH (08:00)
[2021-10-20] MEDS: CEFEPIME 2gm in D5W 50mL 50 ML IV SCH ×2 (08:10→20:49)
[2021-10-20] MEDS: lactose-reduced food (Ensure Enlive) - 237ml bottle PO SCH ×3 (08:11→18:14)
--- NOTE | 2021-10-20 08:29 | NUR ---
Medication administration supervised by Clinical Hook Tender.
[2021-10-20 08:30] VITALS: BP 104/59
--- NOTE | 2021-10-20 10:44 | NUR ---
Charting by Jamal KING reviewed by Christopher Mckay RN
[2021-10-20 10:47] VITALS: BP 105/55
[2021-10-20] MEDS: levoFLOXACIN 500mg tablet PO SCH (11:21)
[2021-10-20 14:00] VITALS: BP 113/57
[2021-10-20] MEDS ORDERED: potassium chloride 10mEq ER tablet PO ONE (15:35)
[2021-10-20] MEDS ORDERED: furosemide 20MG tablet PO ONE (15:35)
[2021-10-20] MEDS ORDERED: potassium Cl 20 mEq SR tablet PO STA ×2 (15:45→15:48)
[2021-10-20 18:00] VITALS: BP 95/54
[2021-10-20] MEDS: tamsulosin 0.4mg capsule PO SCH (20:49)
[2021-10-20] MEDS: atorvastatin 10mg tablet PO SCH (20:50)
[2021-10-20] MEDS: Melatonin 3mg tablet PO SCH (21:00)
[2021-10-20 22:00] VITALS: BP 111/64
[2021-10-21 02:00] VITALS: BP 129/67
[2021-10-21] MEDS: megestrol acetate 400mg/10ml UD oral suspension PO SCH (08:00)
[2021-10-21] MEDS: phenazopyridine 100mg tablet PO SCH (08:00)
[2021-10-21] MEDS: folic acid 1mg tablet PO SCH (08:19)
[2021-10-21] MEDS: pantoprazole 40mg Tablet.DR PO SCH (08:19)
[2021-10-21] MEDS: iron polysaccharide complex 150mg capsule PO SCH (08:19)
[2021-10-21] MEDS: midodrine 5mg tablet PO SCH ×2 (08:21→11:37)
[2021-10-21] MEDS: aspirin 325mg tablet, delayed-release (Ecotrin) PO SCH (08:21)
[2021-10-21] MEDS: ascorbic acid 500mg tablet PO SCH (08:21)
[2021-10-21] MEDS: magnesium Cl slow-release 64mg tablet PO SCH (08:21)
[2021-10-21] MEDS: CEFEPIME 2gm in D5W 50mL 50 ML IV SCH (08:22)
[2021-10-21] MEDS: docusate sod 100mg capsule PO SCH (08:22)
[2021-10-21] MEDS: potassium Cl 20 mEq SR tablet PO SCH (08:23)
[2021-10-21] MEDS: multivitamins, therapeutics tablet PO SCH (08:24)
[2021-10-21] MEDS: lactose-reduced food (Ensure Enlive) - 237ml bottle PO SCH (08:25)
[2021-10-21] MEDS ORDERED: POTA-207 PO (08:31)
[2021-10-21] MEDS ORDERED: FURO-150 PO (08:31)
[2021-10-21] MEDS ORDERED: LEVO500T90 PO (08:31)
[2021-10-21] MEDS ORDERED: DOCU-148 PO (08:36)
[2021-10-21 09:02] LABS: BASOPHILS % (AUTO) 0.3 % (0-1); EOSINOPHILS # (AUTO) 0.3 X10'3 (0-0.9); EOSINOPHILS % (AUTO) 2.3 % (0-6); HEMATOCRIT 31.4 % (42.0-52.0); HEMOGLOBIN 10.1 g/dl (14.0-17.9); LYMPHOCYTES # (AUTO) 0.9 X10'3 (1.1-4.8); LYMPHOCYTES % (AUTO) 6.9 % (21-51); MEAN CORPUSCULAR HEMOGLOBIN 29.5 PG (27.0-31.0); MEAN CORPUSCULAR HGB CONC 32.2 g/dL (33.0-36.5); MEAN CORPUSCULAR VOLUME 91.8 FL (78-98); MEAN PLATELET VOLUME 7.4 FL (7.4-10.4); MONOCYTES # (AUTO) 1.2 X10'3 (0-0.9); MONOCYTES % (AUTO) 9.7 % (2-12); NEUTROPHILS # (AUTO) 10.1 X10'3 (1.8-7.7); NEUTROPHILS % (AUTO) 80.8 % (42-75); PLATELET COUNT 500 X10'3 (140-440); RED BLOOD COUNT 3.42 X10'6 (4.70-6.10); RED CELL DISTRIBUTION WIDTH 15.3 % (11.5-14.5); WHITE BLOOD COUNT 12.5 X10'3 (4.5-11.0)
[2021-10-21 09:07] LABS: ALBUMIN 2.4 G/DL (3.4-5.0); ANION GAP 4 (8-16); BLOOD UREA NITROGEN 16 MG/DL (7-18); BUN/CREATININE RATIO 27.1 (5.4-32.0); CALCIUM 8.6 MG/DL (8.5-10.1); CHLORIDE 102 MMOL/L (99-107); CREATININE 0.59 MG/DL (0.60-1.10); GLUCOSE 123 MG/DL (70-104); POTASSIUM 4.2 MMOL/L (3.5-5.1); SODIUM 133 MMOL/L (135-145); eGFR > 90 ML/MIN
--- NOTE | 2021-10-21 10:06 | NUR ---
O2 Sat at rest on room air:_96__% If below 89%: Recovery O2 Sat at rest on ___LPM:___%:___% via (mask/nasal cannula, etc..) No further documentation is necessary. If O2 Sat did not drop below 89% on room air,ambulate patient on room air. O2 Sat while ambulating on room air:_92__% Recovery O2 Sat while ambulating on ___LPM:___% No further documentation is necessary. If patient does not drop below 89% while ambulating, he/she does not qualify for home O2.
[2021-10-21] MEDS: levoFLOXACIN 500mg tablet PO SCH (11:36)
== END 2021-10-21 13:12 | disposition home or self-care (01) | DRG 219 ==
LOC: PAS IN 09-29 05:36 → ICU 2S 09-29 15:48 → MED 3N 10-13 14:10
PROVIDERS: ADMIT Thoracic Surgery (Cardiothoracic Vascular Surgery); ATTEND Thoracic Surgery (Cardiothoracic Vascular Surgery)
PROC: 021009W Bypass Coronary Artery, One Artery from Aorta with Autologous Venous Tissue, Open Approach (ICD-10-PCS; 2021-09-29)
PROC: 06BQ4ZZ Excision of Left Saphenous Vein, Percutaneous Endoscopic Approach (ICD-10-PCS; 2021-09-29)
PROC: 5A1221Z Performance of Cardiac Output, Continuous (ICD-10-PCS; 2021-09-29)
PROC: B24BZZ4 Ultrasonography of Heart with Aorta, Transesophageal (ICD-10-PCS; 2021-09-29)
PROC: 5A2204Z Restoration of Cardiac Rhythm, Single (ICD-10-PCS; 2021-09-29)
PROC: 5A12012 Performance of Cardiac Output, Single, Manual (ICD-10-PCS; 2021-09-29)
PROC: 30233K1 Transfusion of Nonautologous Frozen Plasma into Peripheral Vein, Percutaneous Approach (ICD-10-PCS; 2021-09-29)
PROC: 30233R1 Transfusion of Nonautologous Platelets into Peripheral Vein, Percutaneous Approach (ICD-10-PCS; 2021-09-29)
PROC: 30233M1 Transfusion of Nonautologous Plasma Cryoprecipitate into Peripheral Vein, Percutaneous Approach (ICD-10-PCS; 2021-09-29)
PROC: 02RF08Z Replacement of Aortic Valve with Zooplastic Tissue, Open Approach (ICD-10-PCS; principal; 2021-09-29 07:40)
PROC: 30233N1 Transfusion of Nonautologous Red Blood Cells into Peripheral Vein, Percutaneous Approach (ICD-10-PCS; 2021-09-30)
PROC: 5A0935A Assistance with Respiratory Ventilation, Less than 24 Consecutive Hours, High Flow/Velocity Cannula (ICD-10-PCS; 2021-10-01)
PROC: 5A09357 Assistance with Respiratory Ventilation, Less than 24 Consecutive Hours, Continuous Positive Airway Pressure (ICD-10-PCS; 2021-10-01)
PROC: 0JH606Z Insertion of Pacemaker, Dual Chamber into Chest Subcutaneous Tissue and Fascia, Open Approach (ICD-10-PCS; 2021-10-02)
PROC: 02H Heart and Great Vessels, Insertion (ICD-10-PCS; 2021-10-02)
PROC: 02HK3JZ Insertion of Pacemaker Lead into Right Ventricle, Percutaneous Approach (ICD-10-PCS; 2021-10-02)
PROC: 0W9B00Z Drainage of Left Pleural Cavity with Drainage Device, Open Approach (ICD-10-PCS; 2021-10-02)
PROC: 0W9900Z Drainage of Right Pleural Cavity with Drainage Device, Open Approach (ICD-10-PCS; 2021-10-02)
PROC: 0WW Anatomical Regions, General, Revision (ICD-10-PCS; 2021-10-02)
PROC: 5A09357 Assistance with Respiratory Ventilation, Less than 24 Consecutive Hours, Continuous Positive Airway Pressure (ICD-10-PCS; 2021-10-03)
PROC: 5A09357 Assistance with Respiratory Ventilation, Less than 24 Consecutive Hours, Continuous Positive Airway Pressure (ICD-10-PCS; 2021-10-04)
PROC: 5A09357 Assistance with Respiratory Ventilation, Less than 24 Consecutive Hours, Continuous Positive Airway Pressure (ICD-10-PCS; 2021-10-05)
PROC: 5A09357 Assistance with Respiratory Ventilation, Less than 24 Consecutive Hours, Continuous Positive Airway Pressure (ICD-10-PCS; 2021-10-06)
PROC: 5A09357 Assistance with Respiratory Ventilation, Less than 24 Consecutive Hours, Continuous Positive Airway Pressure (ICD-10-PCS; 2021-10-11)
PROC: B32T1ZZ Computerized Tomography (CT Scan) of Left Pulmonary Artery using Low Osmolar Contrast (ICD-10-PCS; 2021-10-15)
PROC: B3201ZZ Computerized Tomography (CT Scan) of Thoracic Aorta using Low Osmolar Contrast (ICD-10-PCS; 2021-10-15)
PROC: B32S1ZZ Computerized Tomography (CT Scan) of Right Pulmonary Artery using Low Osmolar Contrast (ICD-10-PCS; 2021-10-15)
DX: T82.857A Stenosis of other cardiac prosthetic devices, implants and grafts, initial encounter (principal); I49.01 Ventricular fibrillation; J18.9 Pneumonia, unspecified organism; J81.1 Chronic pulmonary edema; I47.2 Ventricular tachycardia; D62 Acute posthemorrhagic anemia; N39.0 Urinary tract infection, site not specified; Z20.822 Contact with and (suspected) exposure to COVID-19; I10 Essential (primary) hypertension; B96.20 Unspecified Escherichia coli [E. coli] as the cause of diseases classified elsewhere; N40.0 Benign prostatic hyperplasia without lower urinary tract symptoms; C44.329 Squamous cell carcinoma of skin of other parts of face; Y83.1 Surgical operation with implant of artificial internal device as the cause of abnormal reaction of the patient, or of later complication, without mention of misadventure at the time of the procedure; N20.0 Calculus of kidney; I07.1 Rheumatic tricuspid insufficiency; I25.10 Atherosclerotic heart disease of native coronary artery without angina pectoris; Z95.2 Presence of prosthetic heart valve; K59.00 Constipation, unspecified; Y92.89 Other specified places as the place of occurrence of the external cause; I95.9 Hypotension, unspecified
CPT/HCPCS: 0232T; 93308; 93312; 93325; 36410; 36415; 36430; 36600; 70470; 71045; 71046; 71275; 76942; 80048; 80053; 81001; 82330; 82435; 82803; 82947; 82948; 83036; 83735; 84100; 84132; 84295; 84478; 85007; 85018; 85025; 85347; 85384; 85610; 85730; 86022; 86885; 86900; 86901; 86920; 87070; 87077; 87081; 87088; 87186; 87635; 88300; 93005; 93306; 93970; 93971; 94002; 94003; 94640; 94660; 94667; 94668; 94760; 97110; 97116; 97161; 97530; 97535; A4618; A6258; A6402; A6446; A6449; A7000; A7048; C1751; C1898; C9113; G0378; J0131; J0171; J0282; J0290; J0690; J0692; J1265; J1644; J1815; J1885; J1940; J1956; J2060; J2150; J2250; J2270; J2370; J2405; J2704; J2720; J2765; J2930; J3010; J3370; J3475; J3480; J3490; J7030; J7040; J7050; J7060; J7120; P9012; P9016; P9035; P9045; P9047; P9059; Q9967; Z7610

== ENCOUNTER 2021-10-28 10:24 | Outpatient (CLI) | payer MEDICARE, OTHER ==
[~2021-10-28 10:24] MED LIST changes: +ACET-1 PO; +DOCU-148 PO; +FLO0.4C PO; +FOLI1TAB27 PO; +FURO-150 PO; +IRON150C13 PO; -Insulin Reg/NS 100units/100mL 100 ML IV SCH; +LEVO500T90 PO; -LOSA50TA3 PO; -MALTODEXTRIN/FRUCTOSE 0.68 KCAL/ML LIQUID 296ML BOTTLE PO ONE; +MIDO5TAB4 PO; +POTA-207 PO; -dextrose 50%-water 50ml dispensing syringe IV PRN; -famotidine 20mg tablet PO ONE; -gabapentin 400mg capsule PO ONE; -insulin glargine (Lantus) pen - multi-dose SQ PRN; -iohexol 300mg/ml 100ml inj. ONE; -metoprolol tartrate 12.5mg (1/2 tablet) PO ONE; -ringers solution, lacted 1,000 ML IV SCH
[2021-10-28 11:00] LABS: HEMOGLOBIN 10.3 g/dl (14.0-17.9); MONOCYTES # (AUTO) 1.2 X10'3 (0-0.9)
[2021-10-28 11:03] LABS: BASOPHILS % (AUTO) 0.4 % (0-1); EOSINOPHILS # (AUTO) 0.6 X10'3 (0-0.9); EOSINOPHILS % (AUTO) 6.2 % (0-6); HEMATOCRIT 31.7 % (42.0-52.0); LYMPHOCYTES % (AUTO) 9.2 % (21-51); MEAN CORPUSCULAR HEMOGLOBIN 28.8 PG (27.0-31.0); MEAN CORPUSCULAR HGB CONC 32.6 g/dL (33.0-36.5); MEAN CORPUSCULAR VOLUME 88.3 FL (78-98); MEAN PLATELET VOLUME 7.3 FL (7.4-10.4); MONOCYTES % (AUTO) 11.8 % (2-12); NEUTROPHILS # (AUTO) 7.5 X10'3 (1.8-7.7); NEUTROPHILS % (AUTO) 72.4 % (42-75); PLATELET COUNT 665 X10'3 (140-440); RED BLOOD COUNT 3.59 X10'6 (4.70-6.10); RED CELL DISTRIBUTION WIDTH 15.9 % (11.5-14.5); WHITE BLOOD COUNT 10.4 X10'3 (4.5-11.0)
[2021-10-28 11:19] LABS: ALANINE AMINOTRANSFERASE 47 U/L (12-78); ALBUMIN 2.6 G/DL (3.4-5.0); ALBUMIN/GLOBULIN RATIO 0.7 (1.1-1.5); ALKALINE PHOSPHATASE 89 IU/L (46-116); ANION GAP 6 (8-16); ASPARTATE AMINO TRANSFERASE 28 U/L (10-37); BILIRUBIN,TOTAL 0.4 MG/DL (0.1-1.0); BLOOD UREA NITROGEN 12 MG/DL (7-18); CALCIUM 8.2 MG/DL (8.5-10.1); CHLORIDE 104 MMOL/L (99-107); GLUCOSE 126 MG/DL (70-104); POTASSIUM 4.1 MMOL/L (3.5-5.1); SODIUM 136 MMOL/L (135-145); TOTAL CARBON DIOXIDE 26.1 MMOL/L (24-32); TOTAL PROTEIN 6.4 G/DL (6.4-8.2); eGFR > 90 ML/MIN
== END 2021-10-28 23:59 | disposition home or self-care (01) ==
LOC: LAB 10:24
PROVIDERS: ATTEND Thoracic Surgery (Cardiothoracic Vascular Surgery)
DX: J18.9 Pneumonia, unspecified organism (principal)
CPT/HCPCS: 71046; 80053; 85025